=== PATIENT | female | born 1970 | race Two or more races ===

== ENCOUNTER → 2020-07-24 14:38 | Outpatient (BNVA) | payer BC, SELFPAY | PROVIDERS: Referring Provider Nurse Practitioner Primary Care; Visit Provider Internal Medicine Gastroenterology | DX: Z76.89 Persons encountering health services in other specified circumstances (principal) ==

== ENCOUNTER 2020-10-05 07:04 | Day surgery (SDC) | payer BC, SELFPAY ==
--- NOTE | 2020-10-04 09:03 | P.CONAN_ITS ---
HPI - Anesthesia Eval Consult details Narrative: 49yo F for Upper Endoscopy and Colonoscopy h/o polysub - ? last used [facility] Past Medical History Medical History (Updated 10/05/20 @ 08:29 by Suyapa Cheng) Anxiety Depression HTN (hypertension) Substance abuse Family History Family History (Updated 07/24/20 @ 14:48 by Paulina Sanchez CMA) Father History of cancer Mother History of cancer Surgical History Surgical History (Updated 07/24/20 @ 14:47 by Paulina Sanchez CMA) History of appendectomy Hx of endoscopy Social History Social History (Updated 07/24/20 @ 14:50 by Paulina Sanchez CMA) Alcohol intake: current Alcohol intake frequency: a few times a month Alcohol type: beer Smoking Status: Current every day smoker Tobacco Type: Cigarette Cigarettes Per Day: 10 Use of substances other than those prescribed or required for medical reasons: Yes Substance Use Type: Crack/Cocaine and Marijuana Advance Directives: No Advance Directives Information Provided: Yes Meds Allergies Allergy/AdvReac Type Severity Reaction Status Date / Time Penicillins Allergy Intermediate Difficulty Verified 10/05/20 08:00 Swallowing, hives MORPHINE Allergy Intermediate Facial Uncoded 09/29/20 14:22 Swelling Home Medications Medication Instructions Recorded Confirmed Type metoprolol succinate 100 mg PO DAILY 09/29/20 09/29/20 History hydrochlorothiazide 10/05/20 10/05/20 History losartan 50 mg PO DAILY 10/05/20 10/05/20 History Exam Exam Date and Time: October 04, 2020 09 Assessment and Plan Assessment Anesthesia Assessment: Chart Reviewed
[2020-10-05 07:49] LABS: UPreg QC Valid YES; Urine Pregnancy NEGATIVE (NEGATIVE)
--- NOTE | 2020-10-05 07:49 | P.HPSUR_ITS ---
Pre-Procedural Eval Section B Chief Complaint: left upper quadrant pain,screening Relevant Social History: Tobacco Use Present Medications: see Short Stay Collaborative assessment Medical History: Significant History (Anxiety Depression HTN (hypertension) Substance abuse) History of Previous Operations: Relevant previous surgery/procedure and date(s) (appendectomy) Allergies: Allergies Allergy/AdvReac Type Severity Reaction Status Date / Time Penicillins Allergy Intermediate Difficulty Verified 09/29/20 14:22 Swallowing, hives MORPHINE Allergy Intermediate Facial Uncoded 09/29/20 14:22 Swelling Review of Systems Sugical H&P ROS: Negative: Constitution, Cardiovascular, Respiratory, N eurological, Psychiatric, Hem-Onc, Allergic/Immunologic, Gastrointestinal, Genitourinary, Musculoskeletal, Integumentary, Endocrine and Eyes/Ears/Nose/Throat Exam Surgical H&P Exam: Normal: HEENT, Normal: Heart, Normal: Lungs, Normal: Extremities, Normal: Abdomen, Normal: Skin and Normal: Neurological Plan Diagnosis/Plan: Unchanged I have reviewed the history and physical and performed a pertinent physical examination on my patient. No changes have occurred unless specified.
[2020-10-05 08:09] VITALS: BP 147/91; PULSE 77; RESP 18; TEMP 36.3; O2SAT 99; BMI 30.4
[2020-10-05] MEDS: Lactated Ringers 1,000 ML 100 ML IVCONT (08:27)
--- NOTE | 2020-10-05 08:42 | PM.OP ---
Brief Operative Note Date of Service: 10/05/20 Pre-op diagnosis: luq pain and colon screen Post-op diagnosis: same Procedure: see op note Surgeon: Dorinda Fernandez MD Anesthesia: MAC Estimated blood loss (mL): 0 Condition: stable Disposition: PACU
--- NOTE | 2020-10-05 08:43 | W.PM.OPN ---
Operative Note Operative Note Date of Service: 10/05/20 Narrative: Operative Information Procedure Description: EGD, Colonoscopy FLEXIBLE TRANSORAL UPPER GASTROINTESTINAL ENDOSCOPY AND COLONOSCOPY PROCEDURE NOTE UPPER ENDOSCOPY Consent: Indications for the procedure and potential complications of bleeding, perforation, reaction to medications and missed diagnosis were discussed with the patient and informed consent was obtained. Instrument: Olympus GIF H 190 J mid size upper endoscope Monitoring: Vital signs and clinical assessment, continuous EKG monitoring, Pulse oximetry, Carbon Dioxide monitoring and blood pressure monitoring were done throughout the procedure. Procedure: The patient was placed in the left lateral decubitis position and pre-procedure medications were administered and a bite block was placed. The endoscope was inserted into the mouth and advanced under direct vision to the third part of duodenum. A careful inspection was made as the upper endoscope was withdrawn including a retroflexed examination of the proximal stomach; Findings and interventions are described below. Findings: Larynx:normal Esophagus: GE junction at 40 cm, diaphragm hiatus at 40 cm, normal mucosa Stomach: Patchy erythema. Biopsies were obtained. Grade 2 flap valve on retroflexed examination of the cardia. Duodenum: moderate severe erythema extending to second part of duodenum, bx taken Intervention: Biopsies as noted above COLONOSCOPY Instrument: Olympus variable stiffness pediatric scope 190L Colonoscopy Monitoring: Vital signs and clinical assessment, continuous EKG monitoring, Pulse oximetry, Carbon Dioxide monitoring and blood pressure monitoring were done throughout the procedure. Colon withdrawal time was 13 minutes. Procedure: The patient was placed in the left lateral decubitis position and pre-procedure medications were administered. After a digital rectal examination of the ano-rectum, the video colonoscope was inserted into the rectum and advanced through the colon to the cecum/TI. The colonoscope was slowly withdrawn in a retrograde panoramic fashion and the colon mucosa was carefully examined including a retroflexed view of the rectum. Findings and interventions are described below. Procedure Difficulty:easy Findings: Terminal Ileum-normal, bx taken Cecum:normal Ascending Colon: normal Transverse Colon -normal Descending Colon:normal Sigmoid Colon: normal Rectum: Retroflexion with small internal hemorrhoids, grade I random colon bx taken to r/o microscopic colitis, or infiltrating disease due to findings in upper endoscopy Anorectum - normal Colon preparation: Constantia Bowel Preparation Scale Right colon; 3 Transverse colon: 2 Left colon; 2 (0 = Unprepared colon segment with mucosa not seen due to solid stool that cannot be cleared. 1 = Portion of mucosa of the colon segment seen, but other areas of the colon segment not well seen due to staining, residual stool and/or opaque liquid. 2 = Minor amount of residual staining, small fragments of stool and/or opaque liquid, but mucosa of colon segment seen well. 3 = Entire mucosa of colon segment seen well with no residual staining, small fragments of stool or opaque liquid) Impression and Post Procedure Diagnosis: Endoscopy Findings: gastritis duodenitis Colonoscopy Findings: internal hemorrhoids Plan: Await Pathology results Repeat Colonoscopy in 10 years or earlier if clinically indicated High fiber diet leaflet avoid straining at stool, epsom salts and sitz bath, anusol supps or cream prn trial of PPI see if helps sx, if h pylori pos then treat Above findings were reviewed with the patient and relevant handouts were provided if indicated.
[2020-10-05 09:20] VITALS: BP 107/61; PULSE 83; RESP 16; TEMP 36.7; O2SAT 97
--- NOTE | 2020-10-05 10:01 | HO.POSTANES ---
Post Anesthesia Evaluation Post Anesthesia Evaluation Vital Signs: Vital Signs Temp Pulse Resp BP Pulse Ox 10/05/20 09:20 98.0 F 83 16 107/61 97 10/05/20 08:09 97.3 F 77 18 147/91 H 99 Anesthesia: General (tiva) Mental Status: Awake Pain Control: Satisfactory Nausea/Vomiting: None Hydration: Adequate Anesthesia-Related Issues: No Anes. Related Issues
== END 2020-10-05 10:04 | disposition home or self-care (01) ==
PROVIDERS: Nurse Practitioner; PCP Nurse Practitioner Primary Care; Visit Provider Internal Medicine Gastroenterology
PROC: (CPT 45380; principal; 2020-10-05 08:30)
DX: Z12.11 Encounter for screening for malignant neoplasm of colon (principal); K64.0 First degree hemorrhoids; K29.50 Unspecified chronic gastritis without bleeding; K44.9 Diaphragmatic hernia without obstruction or gangrene; K29.80 Duodenitis without bleeding; I10 Essential (primary) hypertension; F32.9 Major depressive disorder, single episode, unspecified; F14.10 Cocaine abuse, uncomplicated; F12.10 Cannabis abuse, uncomplicated; F17.210 Nicotine dependence, cigarettes, uncomplicated; Z79.899 Other long term (current) drug therapy; Z88.0 Allergy status to penicillin; Z88.8 Allergy status to other drugs, medicaments and biological substances
CPT/HCPCS: 45380; 43239; 81025; 88305; 88342; J3010

== ENCOUNTER → 2020-10-16 14:22 | Outpatient (BNVA) | payer BC, SELFPAY | PROVIDERS: PCP Internal Medicine Geriatric Medicine; Visit Provider Internal Medicine Gastroenterology ==

== ENCOUNTER → 2021-03-20 12:16 | Outpatient (BNVA) | payer BC, SELFPAY | PROVIDERS: PCP Internal Medicine Geriatric Medicine; Visit Provider Internal Medicine Gastroenterology | DX: R10.12 Left upper quadrant pain (principal) ==

== ENCOUNTER 2021-08-07 11:33 | Outpatient (REF) | payer BC, SELFPAY ==
--- NOTE | ~2021-08-07 | US_ITS ---
EXAMINATION: US ABDOMEN COMPLETE CLINICAL INFORMATION: Left upper quadrant pain. COMPARISON: X-ray abdomen 06/29/2018. Ultrasound abdomen complete 06/05/2018. TECHNIQUE: Real-time imaging of the abdominal viscera. FINDINGS: PANCREAS: Normal. ABDOMINAL AORTA: The proximal, mid, and distal segments are normal in caliber. INFERIOR VENA CAVA: Visualized portions are normal. LIVER: The liver is normal in size. The liver contour is normal. Liver echotexture is normal. No focal hepatic lesion. There is no intrahepatic biliary duct dilatation seen. GALLBLADDER: Normal. The gallbladder is physiologically distended without evidence of stones, sludge, polyps, wall thickening or pericholecystic fluid. COMMON BILE DUCT: Normal in caliber measuring 0.5 cm in diameter. RIGHT KIDNEY: Normal. No hydronephrosis. No renal calculi or focal parenchymal lesions. The kidney measures 10.6 cm in maximum dimension. LEFT KIDNEY: Normal. No hydronephrosis. No renal calculi or focal parenchymal lesions. The kidney measures 11.5 cm in maximum dimension. SPLEEN: Normal. The spleen measures 8.1 cm in maximum dimension. FREE FLUID: None. US/US abdomen complete IMPRESSION: Normal abdominal ultrasound.
== END 2021-08-07 11:34 | disposition home or self-care (01) ==
LOC: HO.US 11:33
PROVIDERS: Visit Provider Internal Medicine Gastroenterology
DX: R10.12 Left upper quadrant pain (principal)
CPT/HCPCS: 76700

== ENCOUNTER 2023-05-06 14:56 | Outpatient (REF) | payer BC, SELFPAY ==
--- NOTE | ~2023-05-06 | XR_ITS ---
EXAMINATION: XR CHEST CLINICAL INFORMATION: Hemoptysis. COMPARISON: None available. TECHNIQUE: 2 views of the chest were obtained. FINDINGS: The cardiomediastinal silhouette is normal. There is no focal lung consolidation or pleural effusion. The bony structures and soft tissues are unremarkable. XR/XR chest 2V IMPRESSION: No active cardiopulmonary disease.
== END 2023-05-06 14:57 | disposition home or self-care (01) ==
LOC: HO.HHCX 14:56
PROVIDERS: Visit Provider Internal Medicine
DX: R04.2 Hemoptysis (principal)
CPT/HCPCS: 71046

== ENCOUNTER 2023-05-06 18:43 | Outpatient (REF) | payer BC, SELFPAY | END 2023-05-06 18:44 | disposition home or self-care (01) | LOC: HO.HHCLNP 18:43 | PROVIDERS: Visit Provider Internal Medicine | DX: J02.9 Acute pharyngitis, unspecified (principal) | CPT/HCPCS: 87070 ==

== ENCOUNTER 2023-07-09 | Outpatient (REF) | payer BC, SELFPAY | END 2023-07-09 00:01 | disposition home or self-care (01) | LOC: HO.HHCLNP | PROVIDERS: Visit Provider Emergency Medicine | DX: J02.9 Acute pharyngitis, unspecified (principal) | CPT/HCPCS: 87070 ==

== ENCOUNTER 2023-07-10 12:19 | Outpatient (REF) | payer BC, SELFPAY ==
[2023-07-10 12:34] LABS: MANUAL DIFF FLAG NO
[2023-07-10 12:37] LABS: Basophils Absolute Auto 0.1 X10*3/uL (0.0-0.2); Basophils Percent Auto 0.9 % (0-2); Eosinophils Absolute Auto 0.2 X10*3/uL (0.0-0.4); Hematocrit 37.9 % (37.0-47.0); Hemoglobin 12.4 g/dl (12.0-16.0); Imm Gran Abs Auto 0.03 X10*3/uL (0.00-0.03); Imm Gran Pct Auto 0.5 % (0.0-0.4); Lymphocytes Absolute Auto 2.2 X10*3/uL (1.2-4.9); Lymphocytes Percent Auto 33.1 % (20-40); Mean Corpuscular HGB Conc 32.7 g/dl (31.0-35.0); Mean Corpuscular Hemoglobin 27.7 pg (27.0-33.0); Mean Corpuscular Volume 84.6 fL (80.0-98.0); Mean Platelet Volume 9.2 fL (9.4-12.3); Monocytes Absolute Auto 0.8 X10*3/uL (0.1-1.2); Monocytes Percent Auto 12.1 % (2-11); Neutrophils Absolute Auto 3.3 x10*3/uL (2.0-8.3); Neutrophils Percent Auto 50.4 % (45-73); Platelet Count 286 X10*3/uL (160-400); Red Blood Count 4.48 X10*6/uL (4.20-5.50); Red Cell Distribution Width 14.4 % (11.0-16.0); White Blood Count 6.6 X10*3/uL (4.8-10.8)
[2023-07-10 12:50] LABS: INTERNATIONAL NORM RATIO 0.9 (0.9-1.1); Prothrombin Time 11.4 SEC (11.1-13.3)
[2023-07-12 22:34] LABS: TS Negative Control Passed; TS Panel A 0; TS Panel B 0; TS Positive Control Passed; TSpotTB Negative (Negative)
== END 2023-07-10 12:20 | disposition home or self-care (01) ==
LOC: HO.LAB 12:19
PROVIDERS: PCP Nurse Practitioner Primary Care; Visit Provider Internal Medicine
DX: Z11.1 Encounter for screening for respiratory tuberculosis (principal); R04.2 Hemoptysis
CPT/HCPCS: 36415; 85025; 85610; 85730; 86481

== ENCOUNTER 2023-09-25 08:55 | Outpatient (REF) | payer BC, SELFPAY ==
[2023-09-25 12:03] LABS: Estimated Average Glucose 128 mg/dL; Hemoglobin A1c % 6.1 % (<6.0)
[2023-09-25 12:07] LABS: Alanine Aminotransferase 21 U/L (0-31); Albumin Level 4.1 g/dL (3.5-5.0); Alkaline Phosphatase 87 U/L (39-117); Anion Gap 12 (12-20); Aspartate Amino Transferase 20 U/L (5-31); Bilirubin Total 0.2 mg/dL (0.0-1.0); Blood Urea Nitrogen 12 mg/dL (9-16); Calcium 9.7 mg/dL (8.4-10.2); Carbon Dioxide 30 mmol/L (22-29); Chloride 101 mmol/L (96-108); Cholesterol 163 mg/dL (<200); Estimated Glomerular Filt Rate > 60; Glucose Random 92 mg/dL (60-115); HDL Cholesterol 38 mg/dL (>40); LDL Cholesterol Calculated 103 mg/dL (<100); Sodium 139 mmol/L (135-145); Total Protein 7.6 g/dL (6.5-8.0); Triglycerides 111 mg/dL (<150)
[2023-09-25 12:22] LABS: TSH reflex Free T4 2.17 uIU/mL (0.32-4.0)
[2023-09-25 12:32] LABS: Reflex LDLD? No
== END 2023-09-25 08:56 | disposition home or self-care (01) ==
LOC: HO.HHCL 08:55
PROVIDERS: Visit Provider Family Medicine
DX: R04.2 Hemoptysis (principal); R51.9 Headache, unspecified; G89.29 Other chronic pain; R49.0 Dysphonia; R68.2 Dry mouth, unspecified; I10 Essential (primary) hypertension
CPT/HCPCS: 36415; 80053; 80061; 83036; 84443

== ENCOUNTER → 2023-11-05 13:45 | Outpatient (BNV) | payer BC, SELFPAY | PROVIDERS: PCP Nurse Practitioner Primary Care; Visit Provider Radiology Diagnostic Radiology | DX: Z12.31 Encounter for screening mammogram for malignant neoplasm of breast (principal) | CPT/HCPCS: 77063; 77067 ==

== ENCOUNTER 2023-11-05 13:59 | Outpatient (REF) | payer BC, SELFPAY | END 2023-11-05 14:00 | disposition home or self-care (01) | LOC: HO.MAMMO 13:59 | PROVIDERS: PCP Nurse Practitioner Primary Care; Visit Provider Family Medicine | DX: Z12.31 Encounter for screening mammogram for malignant neoplasm of breast (principal) | CPT/HCPCS: 77063; 77067 ==

== ENCOUNTER 2023-12-19 10:57 | Outpatient (AMB) | payer BC, SELFPAY ==
--- NOTE | 2023-12-19 08:26 | A.OFFVIS_ITS ---
Intake Intake Visit Reasons: Current Smoker Allergies Penicillins Allergy (Intermediate, Verified 09/24/23 14:53) Difficulty Swallowing, hives MORPHINE Allergy (Intermediate, Uncoded 09/24/23 14:53) Facial Swelling HPI Current Smoker HPI Details Initial visit for this 53yo smoker with a 30PYH. Patient has been smoking since age 18 for 35 years at 1ppd. . Reports marijuana use. Denies second hand smoke exposure. Denies exposure to chemicals or substances like asbestos. . Denies known family history of lung cancer. Father had throat cancer. Denies personal history of cancers. Denies chest CT in last year. . Denies recent travel outside the [place]. Denies recent respiratory illness or recent hospitalization for respiratory issues. Admits testing positive for COVID x 4. Admits receiving COVID Vaccine. x 2. . Denies fever, chills, new/worsening cough, hemoptysis, hoarseness or dysphagia. Denies significant chest pain, significant dyspnea or unintentional weight loss. Patient Lung Cancer Screening Questionnaire reviewed with patient by provider. . Shared Decision Making Completed. Patient meets criteria. Discussed in detail with patient, the risk vs benefit of LDCT screening. Patient consents to proceed with scan. Discussed smoking cessation. [facility] Medical History (Updated 12/19/23 @ 11:31 by Eli Arana PA-C) Nicotine dependence, cigarettes, uncomplicated Substance abuse Anxiety Depression HTN (hypertension) Surgical History (Updated 12/18/23 @ 13:55 by Eli Arana PA-C) History of colonoscopy History of endoscopy History of appendectomy Family History Father History of cancer Mother History of cancer Social History (Updated 12/19/23 @ 11:31 by Eli Arana PA-C) Household Members: Children Alcohol intake: current Alcohol intake frequency: holidays/special occasions only Alcohol type: beer Patient Tobacco Use Status: Current everyday Tobacco user Cigarettes Per Day: 10 Years Smoked: onset 18yo, 1ppd x 35yrs, 30pyh Substance Use Type: Marijuana Assessment & Plan Assessment & Plan (1) Nicotine dependence, cigarettes, uncomplicated: Comment: (current smoker, onset 18yo, 1ppd x 35yrs, 30pyh) Code(s): F17.210 - Nicotine dependence, cigarettes, uncomplicated Plan: - SDM visit completed today in office. - Patient meets criteria for LDCT for lung cancer screening purposes and is asymptomatic. - Smoking cessation counseling offered. Patients can always call [phone]. - Will arrange for a LDCT scan of the chest for screening purposes at [facility]. - Risks, benefits, and alternatives were discussed in detail and the patient agrees to proceed. - Risks discussed include but are not limited to: radiation exposure, anxiety during testing and while awaiting results, false negatives, false positives and possibility of additional intervention such as further imaging or surgical procedures for benign disease. - Benefits are obviously detection of lung cancer at an early stage which can lead to improved outcomes. - Discussed the importance of screening program compliance with adherence to yearly LDCT scan as scheduled - or sooner interval scans for personalized screening regimen. - Discussed follow up plan. Our office will send a letter discussing results and if needed set up phone call and office visit based on CT findings. - Patient educated on results categorization and the management decisions for suspicious findings potentially found on the screening LDCT scan. Any patient with a Lung RADS score of 3 or 4 will be reviewed by a multidisciplinary team at [facility] to form a plan of action in regards to scan findings. - If further work up is warranted for a suspicious lung finding this will be followed by the Lung Cancer Screening program in conjunction with the Thoracic Surgery Department at [facility]. - A copy of the office note and LDCT will be sent to the patient's PCP - as well as documentation on any associated further plans of care. - Incidental findings on LDCT are the PCP's responsibility. These findings are indicated with an S finding on the LDCT Assessment. A note discussing the findings will be sent to the PCP who is then responsible for further management. - All questions answered.? Coding Level of Care Code Lung Cancer Screening [id number] Diagnoses Nicotine dependence, cigarettes, uncomplicated F17.210
== END 2023-12-19 11:36 | disposition home or self-care (01) ==
PROVIDERS: PCP Nurse Practitioner Primary Care; Referring Provider Nurse Practitioner Primary Care; Visit Provider Physician Assistant Medical
DX: F17.210 Nicotine dependence, cigarettes, uncomplicated (principal)
CPT/HCPCS: G0296

== ENCOUNTER 2023-12-19 11:37 | Outpatient (REF) | payer BC, SELFPAY ==
--- NOTE | ~2023-12-19 | CT_ITS ---
EXAMINATION: CT CHEST SCREENING CLINICAL INFORMATION: Nicotine dependence, current smoker, one pack per day with 30 pack-year history. COMPARISON: None available. TECHNIQUE: Multidetector volumetric CT imaging of the chest is performed without contrast using low dose technique. Additional 2D coronal and sagittal reformatted images and axial 3D maximum intensity projection (MIP) images are generated on the CT workstation. This CT examination was performed using dose optimization techniques as appropriate, variously including the following: *Automated exposure control *Adjustment of mA and/or kV according to patient size (this includes techniques or standardized protocols for targeted exams where dose is matched to indication/reason for exam; i.e. extremities or head) *Use of iterative reconstruction technique DLP: 45 mGy-cm FINDINGS: LUNGS: Emphysematous changes are present along with peribronchial thickening. Some tree-in-bud ground-glass and solid nodular densities are seen in the right lower lobe (5:247-290 and bacon images). There are a few areas of inspissated mucus within bronchi in this region. No suspicious lung masses seen concerning for malignancy. MEDIASTINUM: The mediastinum is normal. CORONARY ARTERY CALCIFICATION: None visualized on this study. PLEURA: There is no pleural effusion. No pleural mass or thickening. AXILLA: No lymphadenopathy. UPPER ABDOMEN: Unremarkable. OSSEOUS STRUCTURES: Unremarkable. CT/CT lung screening IMPRESSION: Emphysema and bronchial thickening are present. Right lower lobe tree-in-bud formation with predominantly ground-glass changes consistent with inflammatory/infectious etiologies. No evidence to suggest malignancy. ASSESSMENT: Lung-RADS category 1: Negative RECOMMENDATION: Routine annual low-dose CT screening in 12 months.
== END 2023-12-19 11:38 | disposition home or self-care (01) ==
LOC: HO.CT 11:37
PROVIDERS: PCP Nurse Practitioner Primary Care; Visit Provider Nurse Practitioner Family
DX: Z12.2 Encounter for screening for malignant neoplasm of respiratory organs (principal); F17.210 Nicotine dependence, cigarettes, uncomplicated
CPT/HCPCS: 71271; G0296

== ENCOUNTER 2024-03-08 09:52 | Outpatient (AMB) | payer BC, SELFPAY ==
--- NOTE | 2024-03-08 10:09 | A.OFFVIS_ITS ---
Vital Signs 03/08/24 10:11 Height 5 ft 9 in Weight 189 lb BMI 27.9 BP 122/84 Blood Pressure Location Rt brachial Position Sitting Pulse 75 Pulse Source Pulse Oximeter Pulse Oximetry (%) 98 Oxygen Delivery Method Room Air Intake Visit Reasons: ENP-Loud Snoring/Chronic dunn -Conf Intake Note: patient presents for loud snoring. patient presents for snoring and waking up tired Retail Pharmacy Merchandiser Required: Yes Retail Pharmacy Merchandiser Name: mariela dennis Allergies Penicillins Allergy (Intermediate, Verified 03/08/24 10:12) Difficulty Swallowing, hives MORPHINE Allergy (Intermediate, Uncoded 03/08/24 10:12) Facial Swelling Medication List - Last Reconciled 03/08/24 by EDIS Foster clonazepam 0.5 mg PO BID PRN dicyclomine 20 mg PO TID doxycycline hyclate 100 mg PO BID [hydrochlorothiazide ] hydrochlorothiazide 12.5 mg PO DAILY losartan 50 mg PO DAILY metoprolol succinate ER 100 mg PO DAILY pantoprazole 40 mg PO BID peg-electrolyte soln 420 gram (TriLyte With Flavor Packets) 240 mL PO Q10M HPI Comments Details: Right-handed 53-yr-old female presents for new pt evaluation of sleep and headache disorder. Pt is accompanied by her friend. Pt reports she started having sinus congestion and headaches last April after she had a URI/sinusitis. During this time, she has had 3 courses of antibiotics. She was never given prednisone. She has been noticing hemoptosis, dry mouth in am, as well as snoring. She notes she has had Covid-9 4 times, the 1st time was 3 yrs ago, and the last was in Jul-Aug 2023- and this was the worst- more URI, SOB, fatigue, weakness s/s. She states she did not have frequent or bothersome headaches beofre last Apr, She has not had sinus imaging yet. She has an initial ENT consult scheduled for December 2023, CT/CT lung screening IMPRESSION: Emphysema and bronchial thickening are present. Right lower lobe tree-in-bud formation with predominantly ground-glass changes consistent with inflammatory/infectious etiologies. No evidence to suggest malignancy. 02/17/24, Complete PFT INTERPRETATION: Vital capacity near lower limit of normal, without obstruction. No significant response to bronchodilator. The MVV is consistent with the level of FEV1. TLC is normal. The carbon monoxide diffusing capacity is above 100% predicted. PMH and ROS are notable for:? Musculoskeletal disorders or injury: Remote h/o right rotator cuff tear Mood d/o: Anxiety, h/o depression. Respiratory d/o: Asthma- states this started this past yr. Emphysema as above CV disease: HTN, tachycardia- tx's w/ metoprolol/losartan and water, HLD- now better with diet changes. Endocrine or metabolic d/o: borderline Diabetes GI d/o: Constipation: at times, H/o H. Pylori. Has GERD- omeprazolel helps- but needs a refill. 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 History of concussion/head injury, Sleep d/o, Clotting or hematology d/o, Thyroid d/o History of seizure, syncope, or drop attacks, Leg Cramps, Family history of migraine or other headache disorder Lifestyle considerations: Sleep routine: Usual bedtime: 6:30-7:30am and wake-up time: 11:30-12pm. Sometimes sleeps again before work. Sleep difficulties: Endorses: Snoring, Fatigue, Gasping, rare gasping arousals, Restless sleep, am dry mouth. Denies bruxism. 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 Family planning: none Headache questionnaire:? Typical headache characteristics: Prodrome symptoms: unsure Aura: none Pain intensity: 7-8/10 Location, quality, characteristics: Just a pain in frontal region and top of head Associated symptoms: phonophobia, some fatigue, bilateral nasal and maxilary sinus congestion and watery eyes. Triggers: working more days in a row Time of day: maybe when working- maybe due to the dust Duration and Frequency: whenever working, starts 3 hours after stating work, and then can last the rest of the shift. Can occur up to 6 days a week. How does headache impact your life? works through the headache Current acute medication use/interventions: Tylenol- some effect Current preventative medication use: None Non-pharmacological interventions: none [facility] Medical History (Updated 03/08/24 @ 11:41 by EDIS Foster) Food allergy Nicotine dependence, cigarettes, uncomplicated Substance abuse Anxiety Depression HTN (hypertension) Surgical History History of colonoscopy History of endoscopy History of appendectomy Family History Father History of cancer Mother History of cancer Social History Household Members: Children Alcohol intake: current Alcohol intake frequency: holidays/special occasions only Alcohol type: beer Patient Tobacco Use Status: Current everyday Tobacco user Cigarettes Per Day: 10 Years Smoked: onset 18yo, 1ppd x 35yrs, 30pyh Substance Use Type: Marijuana Physical Exam Vital Signs: Last Vital Signs Pulse 75 03/08/24 10:11 BP 122/84 03/08/24 10:11 Pulse Ox 98 03/08/24 10:11 Oxygen Delivery Method Room Air 03/08/24 10:11 BMI result Body Mass Index 27.9 Const Orientation/consciousness: patient oriented x3 HEENT Other: Mallampati stage IV Head: Yes normocephalic Resp Effort & Inspection: normal respiratory effort and able to speak in complete sentences Neuro General: patient oriented x3 Cranial nerves: Yes CN's II-XII intact bilaterally Cognition (Neuro): normal cognition Gait exam (Neuro): Normal gait present Motor exam (neuro): 5/5 motor strength present throughout Deep tendon reflexes (DTR's): Right triceps reflex intensity grade: 2+, Left triceps reflex intensity grade: 2+, Rt Biceps (C5, C6): 2+, Left biceps reflex intensity grade: 2+, Right brachioradialis reflex intensity grade: 2+, Left brachioradialis reflex intensity grade: 2+, Right patellar reflex intensity grade: 2+ and Left patellar reflex intensity grade: 2+ Coordination: [id number] test normal Pupils: Normal pupillary reactivity/response: bilateral Psych Appearance: grossly normal Mental Status: mental status grossly normal Speech and movement: Normal speech and movement present Affect: normal affect Attitude: cooperative Thought process: Normal thought process present Assessment & Plan Assessment & Plan (1) Chronic congestion of paranasal sinus: Code(s): J32.9 - Chronic sinusitis, unspecified Category: Medical (2) Headache: Code(s): R51.9 - Headache, unspecified Category: Medical (3) Migraine without aura: Code(s): G43.009 - Migraine without aura, not intractable, without status migrainosus Category: Medical (4) Snoring: Code(s): R06.83 - Snoring Category: Medical (5) Sleep difficulties: Code(s): G47.9 - Sleep disorder, unspecified Category: Medical (6) Fatigue: Code(s): R53.83 - Other fatigue Category: Medical Plan Pt advised to undergo: CT sinuses to assess for secondary etiologies of headcahe and chronic sinus congestion. HST to assess for sleep apnea Future considerations- Brain MRI w/wo. For overall headache/sleep management: * Optimize good self-care, including but not limited to maintaining a healthy diet, adequate fluid intake, adequate sleep, and engaging in regular physical activity. * Track headaches, especially after any treatment regimen changes. * Advised to reduce smoking For acute headache treatment: Discussed importance of taking acute medications at the first sign of headache. Trial Nurtec ODT 75mg qd prn. May take w/ Tylenol. Potential adverse effects of gepants, including but not limited to fatigue, nausea, dry mouth, constipation. Previous acute migraine medication trials: None Acute migraine medication contraindications: All triptans d/t HTN, HLD, tachycardia. For headache prevention medication: Preventative medications should be taken routinely as prescribed for best effect, it may take several weeks for full effect to take effect. Start Riboflavin 400mg qam Start Magnesium 400mg qhs Start Loratadine 10mg qd. Continue Metoprolol and Losartan - ordered for HTN and tachycardia. Previous migraine prevention medication trials: None other Migraine prevention medication contraindications: None at this time Follow-up upon review of above and in clinic in 3-4 months or sooner prn. Orders: Orders CT sinus wo/w IV con Today J32.9 - Chronic sinusitis, unspecified, R51.9 - Headache, unspecified RT home sleep study Today G47.9 - Sleep disorder, unspecified, R06.83 - Snoring, R53.83 - Other fatigue Medications: New rimegepant (Nurtec ODT) 75 mg PO ONCE 30 days PRN 16 tabs 6RF migraine headache MDD 1 tab G43.009 - Migraine without aura, not intractable, without status migrainosus loratadine 10 mg PO DAILY 30 days 30 tabs 6RF omeprazole 20 mg PO DAILY 30 days 30 caps 3RF Discontinued pantoprazole Discontinued Reason: Doctor's Order 40 mg PO BID 60 tabs 1RF Coding Level of Care Code New Pt Level 4 (77948) Diagnoses Chronic congestion of paranasal sinus J32.9 Headache R51.9 Migraine without aura G43.009 Snoring R06.83 Sleep difficulties G47.9 Fatigue R53.83
[2024-03-08 10:11] VITALS: BP 122/84; PULSE 75; O2SAT 98; BMI 27.9
== END 2024-03-08 11:52 | disposition home or self-care (01) ==
PROVIDERS: PCP Nurse Practitioner Primary Care; Visit Provider Nurse Practitioner Family
DX: J32.9 Chronic sinusitis, unspecified (principal); R51.9 Headache, unspecified; G43.009 Migraine without aura, not intractable, without status migrainosus; R06.83 Snoring; G47.9 Sleep disorder, unspecified; R53.83 Other fatigue
CPT/HCPCS: 99204

== ENCOUNTER → 2024-03-08 09:52 | Outpatient (BNVA) | payer BC, SELFPAY | PROVIDERS: PCP Nurse Practitioner Primary Care; Visit Provider Nurse Practitioner Family ==

== ENCOUNTER 2024-03-23 11:37 | Outpatient (REF) | payer BC, SELFPAY ==
[2024-03-23 13:13] LABS: Estimated Average Glucose 131 mg/dL; Hemoglobin A1c % 6.2 % (<6.0)
== END 2024-03-23 11:38 | disposition home or self-care (01) ==
LOC: HO.HHCL 11:37
PROVIDERS: Visit Provider Internal Medicine Geriatric Medicine
DX: R73.9 Hyperglycemia, unspecified (principal); R73.03 Prediabetes
CPT/HCPCS: 36415; 83036

== ENCOUNTER 2024-04-23 14:30 | Outpatient (REF) | payer BC, SELFPAY ==
--- NOTE | ~2024-04-23 | CT_ITS ---
EXAMINATION: CT SINUS WITHOUT CONTRAST CLINICAL INFORMATION: Chronic sinusitis, unspecified. COMPARISON: None available. TECHNIQUE: Spiral CT of the paranasal sinuses and maxillofacial region was performed without contrast. Sagittal, coronal, and thin section axial reformatted images were constructed from the axial data set. This CT examination was performed using dose optimization techniques as appropriate, variously including the following: *Automated exposure control *Adjustment of mA and/or kV according to patient size (this includes techniques or standardized protocols for targeted exams where dose is matched to indication/reason for exam; i.e. extremities or head) *Use of iterative reconstruction technique DLP: 112 mGy-cm FINDINGS: POSTOPERATIVE FINDINGS: -None apparent. MAXILLARY DENTAL FINDINGS: -None apparent. NASAL CAVITY: -Normally pneumatized without masses. -Nasal septum is minimally left deviated anteriorly. No spur. TURBINATES: -Middle and inferior turbinates have normal morphology and appearance. Superior turbinates are also normal. MAXILLARY SINUSES: -Right maxillary antrum demonstrates to posteroinferior abutting mucous retention cysts, occupying approximately one third of the sinus. There is a presumably old orbital floor fracture on the right. Remainder of the sinus is pneumatized without air-fluid levels. -Right maxillary ostia is minimally narrowed by a partial Michelle cell but otherwise the infundibulum is patent. -Left maxillary sinus demonstrates moderate polypoid mucosal thickening throughout the anterior one half, without air-fluid level. -Right maxillary ostia is narrowed by Claudy Michelle cell and low lying ethmoid air cell, however a thin air channel remains patent. FRONTAL SINUSES: -Normally pneumatized bilaterally. Small osteoma present within the septum. -Frontal recesses are minimally narrowed by mucosal thickening but otherwise patent. ETHMOID SINUSES: -Anterior ethmoid sinuses are pneumatized normally. -Posterior mid sinuses demonstrate mild mucosal thickening left greater than right, possibly related to mucous retention cyst on the left. SPHENOID SINUSES: -Normally pneumatized bilaterally with the left being dominant. -Sphenoethmoidal recesses are minimally narrowed by mucosal thickening but air channels remain patent. PREOPERATIVE ANATOMY: -There are type III cribriform plates. They are symmetric. -The left fovea ethmoidalis and lateral lamellae are slightly lower. -The anterior ethmoid canals are both surrounded by air. -There are petra isaak is pneumatized. ADDITIONAL FINDINGS: -Globes and orbital contents appear normal. -Imaged intracranial contents demonstrate no mass effect, edema, or ventriculomegaly. -There are bilateral torus mandibularis, which are incompletely imaged. -Facial soft tissues appear normal. Fat planes are preserved in the retromaxillary regions. -Minimal prominence of the adenoidal soft tissues. -Partially imaged mastoids and tympanic cavities are normally pneumatized. The petrous apices are pneumatized bilaterally. -Mild degenerative changes in the TM joints. CT/CT sinus wo IV con IMPRESSION: 1. Asyb-ks-dmfpjkhs sinus disease within the left greater than right maxillary antra. 2. Minimal posterior ethmoid sinus disease. 3. All major drainage pathways are patent as detailed. 4. Presumably old right orbital floor fracture. 5. Additional ancillary findings as well as anatomical variation as detailed in the body of the report. Electronically signed by: Hai Valiente MD 05/24/2024 01:03 PM EDT
== END 2024-04-23 14:31 | disposition home or self-care (01) ==
LOC: HO.CT 14:30
PROVIDERS: PCP Nurse Practitioner Primary Care; Visit Provider Psychiatry & Neurology Neurology
DX: J32.9 Chronic sinusitis, unspecified (principal)
CPT/HCPCS: 70486

== ENCOUNTER → 2024-04-23 14:32 | Outpatient (BNV) | payer BC, SELFPAY | PROVIDERS: PCP Nurse Practitioner Primary Care; Visit Provider Radiology Diagnostic Radiology | DX: J32.9 Chronic sinusitis, unspecified (principal) | CPT/HCPCS: 70486 ==

== ENCOUNTER 2024-12-22 12:09 | Outpatient (REF) | payer BC, SELFPAY ==
--- OUTSIDE RECORDS SUMMARY | 2024-12-22 14:11 | XMS_ITS | Encounter Summary ---
Author Organization [facility] [facility] Address [address] [place] [address] [address] [place] [address] Care Team Providers Care File Drawer Finisher Name Role Phone Dianne Smith Primary Care Provider [phone] Reason for Visit * Reason Comments Med Refill Encounter Details Date Type Department Care Team ([facility] Contact Info) Description 12/25/2023 Refill [facility] [address] [place], [place] [phone] Dianne Smith ANP [address] [place] [address] Anxiety Social History Tobacco Use Types Packs/Day Years Used Date Smoking Tobacco: Every Day Cigarettes Passive Smoke Exposure: Current Smokeless Tobacco: Never Comments Unknown Sex and Gender Information Value Date Recorded Sex Assigned at Female 07/15/2022 10:32 AM EDT Legal Sex Female 10:32 AM EDT Gender Identity Female 07/15/2022 10:32 AM EDT Sexual Orientation Lesbian or [place] 07/15/2022 10 :32 AM EDT documented as of this encounter Plan of Treatment Upcoming Encounters Date Type Department Care Team ([facility] Contact Info) Description 01/18/2025 11:00 AM EDT Office Visit [facility] [address] [place] [address] Dianne Smith ANP [address] [place] [address] documented as of this encounter Visit Diagnoses Diagnosis Anxiety Anxiety state, unspecified documented in this encounter Care Teams File Drawer Finisher Relationship Specialty Start Date End Date Dianne Smith ANP [address] [place] [address] PCP - General Family Medicine 02/01/20 documented as of this encounter
--- OUTSIDE RECORDS SUMMARY | 2024-12-22 14:11 | XMS_ITS | Encounter Summary ---
Author Organization [employer] Address [address] [place] [address] [address] [place] [address] Care Team Providers Care Brick Chimney Builder Name Role Phone Dianne Smith Primary Care Provider [phone] Reason for Visit * Reason Comments Med Refill Encounter Details Date Type Department Care Team (Late st Contact Info) Description 03/31/2024 Refill [facility] [address] [place], [place] [phone] Dianne Smith ANP [address] [place] [address] Anxiety Social History Tobacco Use Types Packs/Day Years Used Date Smoking Tobacco: Every Day Cigarettes Passive Smoke Exposure: Current Smokeless Tobacco: Never Depression Answer Date Recorded Patient Health Questionnaire-9 Score 6 01/19/2024 Patient Health Questionnaire-9 Score 6 01/19/2024 Last PHQ-9: Questionnaire Data Not on file 0 01/19/2024 Housing Stability Answer Date Recorded What is your housing situation today? I have estiven rascon 01/12/[address] you li ve. Do you have problems with any of the following? None of the above 01/12/2024 Food Insecurity Answer Date Recorded Within the past 12 months, y ou worried that your food would run out before you got money to buy more: Often true 01/12/2024 Within the past 12 months,th e food you bought just didn't last and you didn't have enough money to get more: Often true Transportation Answer Date Recorded In the past 12 months, has l ack of transportation kept you from medical appts, meetings, work or from getting things needed for daily living? No 01/12/2024 Utilities Answer Date Recorded In the past 12 months, has t he electric, gas, oil or water company threatened to shut off services in your home? No 01/12/2024 Depression Answer Date Recorded Patient Health Questionnaire-2 Score 0 01/19/2024 Comments Unknown Sex and Gender Information Value Date Recorded Sex Assigned at Female 07/15/2022 10:32 AM EDT Legal Sex Female 10:32 AM EDT Gender Identity Female 07/15/2022 10:32 AM EDT Sexual Orientation Lesbian or [place] 07/15/2022 10 :32 AM EDT documented as of this encounter Plan of Treatment Upcoming Encounters Date Type Department Care Team (Late st Contact Info) Description 01/18/2025 11:00 AM EDT Office Visit [facility] [address] [place] [address] Dianne Smith ANP [address] [place] [phone] documented as of this encounter Visit Diagnoses Diagnosis Anxiety Anxiety state, unspecified documented in this encounter Additional Health Concerns Assessment Noted Time PHQ-9 Depression Total Score: 6 01/19/20 24 1:17 PM EDT documented as of this encounter Care Teams Brick Chimney Builder Relationship Specialty Start Date End Date Dianne Smith ANP [address] [place] [phone] PCP - General Family Medicine 02/01/20 documented as of this encounter
--- OUTSIDE RECORDS SUMMARY | 2024-12-22 14:11 | XMS_ITS | Encounter Summary ---
Author Organization [facility] Address [address] [place] [address] [address] [place] [address] Care Team Providers Care Wiring Inspector Name Role Phone Luis Francisco BELLAMY Primary Care Provider [phone] Reason for Referral * Imaging (Routine) - Closed Specialty Diagnoses / Procedures Referred By Steff chen Referred To Contact Radiology Diagnoses Hemoptysis Hoarseness of voice Sore throat Procedures CT Soft Tissue Neck w/ Contrast Lucila Barrientos MD [address] [place] [address] Phone: tel: fax: [facility] [address] [place] [address] Phone: tel: fax: Referral ID Status Reason Start Date Expiration Date Visits Re quested Visits Authorized [id number] Closed 10/08/2023 2024 1 1 Encounter Details Date Type Department Care Team (Late st Contact Info) Description 10/08/2023 Orders Only [facility] [address] [place], [place] [phone] Lucila Barrientos MD [address] [place], [place] [phone] Hemoptysis (Primary Dx); Hoarseness of voice; Sore throat Social History Tobacco Use Types Packs/Day Years [...] Description 01/18/2025 11:00 AM EDT Office Visit [facility] [address] [facility] [place] [address] Francisco Almeida ANP [address] [place] [address] Scheduled Orders Name Type Priority Associated Diagnoses Orde r Schedule CT Soft Tissue Neck w/ Contrast Imaging Routine Hemoptysis Hoarseness of voice Sore throat Expected: 10/08/2023, Expires: 10/08/2024 documented as of this encounter Procedures Procedure Name Priority Date/Time Associated Diagnosis Comments BI MAMMOGRAM SCREENING TOMOSYNTHESIS BILATERAL Routine 11/05/2023 2:18 PM EST documented in this encounter Results * BI Mammogram Screening Tomosynthesis Bilateral (11/05/2023 2:18 PM EST) Anatomical Region Laterality Modality Breast Bilateral Mammography 11/05/2023 2:18 PM EST Narrative 11/27/2023 5:42 AM EDT ? [facility] ? [address] ?[place] [id number] ? Mammography Report ? Signed ? Patient: Quinn Fernandez,Stacey ?MR# ?? : [id number] ? : 1970 ?Acct:[id number] ? Age/Sex: 53 / F ?ADM Date: 02/21/24 ? Loc: HO.MAMMO ? Attending Dr: Lucila Barrientos MD ? Ordering Physician: Lucila Barrientos MD ?Results: 1Negative ? Date of Service: 11/05/23 ?Follow Up: 1 Year From Orig ?? inal Mammogram ? Procedure(s): MM tomosynthesis screening BI ?? Accession Number(s): [id number] ? cc: FRANCISCO ALMEIDA NP; Lucila Barrientos MD ? EXAMINATION: ?? MM SCREENING DIGITAL BREAST TOMOSYNTHESIS, BILATERAL ? CLINICAL INFORMATION: ? Screening. Asymptomatic. ? COMPARISON: ?? Mammography: This study is compared with prior exams dating back to ?? 2018. ? TECHNIQUE: ?? Digital breast tomosynthesis is performed in both the craniocaudal and ?? mediolateral oblique views along with computer-aided detection (CAD). ?? Synthesized 2D images are generated from the tomosynthesis. ? FINDINGS: ?? There are scattered areas of fibroglandular density (ACR BI-RADS breast ?? composition Category b). ? There are no significant masses, abnormal calcifications, or other ?? abnormalities. ? MM/MM tomosynthesis screening BI ?? IMPRESSION: ?? No mammographic evidence of malignancy. ? ASSESSMENT: ? BI-RADS BI-RADS 1 - Negative ? RECOMMENDATION: ?? Routine annual mammography screening. ? 1 year F/U ? This examination should not preclude the clinical evaluation of a ?? suspicious palpable abnormality. ? This patient's information was entered into a reminder system with a ?? target due date for their next mammogram. ? Dictated By: ?Cecy Thakkar MD ? Signed By: ?<Electronically signed by Cecy Thakkar MD in OV> ? 14/24 0538 ? DD/DT: 11/05/ 1418 ? TD/TT: ? Pmp Project Manager: ? Procedure Note Donotuseinterpreter, Image - 11/27/2023 [facility] [address] [place] [address] Mammography Report Signed Patient: Stacey ShawMR# : [id number] : 1970Acct:[id number] Age/Sex: 53 / FADM Date: 11/05/23 Loc: HO.MAMMJeremi Attending Dr: Lucila Barrientos MD Ordering Physician: Lucila Barrientos MDResults: 1Negative Date of Service: 11/05/23Follow Up: 1 Year From Orig inal Mammogram Procedure(s): MM tomosynthesis screening BI Accession Number(s): [id number] cc: FRANCISCO ALMEIDA PRECISION GRINDER EXTERNAL; Lucila Barrientos MD EXAMINATION: MM SCREENING DIGITAL BREAST TOMOSYNTHESIS, BILATERAL CLINICAL INFORMATION: Screening. Asymptomatic. COMPARISON: Mammography: This study is compared with prior exams dating back to 2018. TECHNIQUE: Digital breast tomosynthesis is performed in both the craniocaudal and mediolateral oblique views along with computer-aided detection (CAD). Synthesized 2D images are generated from the tomosynthesis. FINDINGS: There are scattered areas of fibroglandular density (ACR BI-RADS breast composition Category b). There are no significant masses, abnormal calcifications, or other abnormalities. MM/MM tomosynthesis screening BI IMPRESSION: No mammographic evidence of malignancy. ASSESSMENT: BI-RADS BI-RADS 1 - Negative RECOMMENDATION: Routine annual mammography screening. 1 year F/U This examination should not preclude the clinical evaluation of a suspicious palpable abnormality. This patient's information was entered into a reminder system with a target due date for their next mammogram. Dictated By: Cecy Thakkar MD Signed By: <Electronically signed by Cecy Thakkar MD in OV> 11/27/23 0538 DD/ 1418 TD/TT: Pmp Project Manager: Lucila Barrientos MD IMG BI PROCEDURES Final Result documented in this encounter Visit Diagnoses Diagnosis Hemoptysis- Primary Hoarseness of voice Dysphonia Sore throat Acute pharyngitis documented in this encounter Care Teams Wiring Inspector Relationship Specialty Start Date End Date Francisco Almeida ANP [address] [place] [address] PCP - General Family Medicine 02/01/20 documented as of this encounter
--- OUTSIDE RECORDS SUMMARY | 2024-12-22 14:11 | XMS_ITS | Encounter Summary ---
Author Organization [facility] Address [address] [place] [address] [address] [place] [address] Care Team Providers Care Test Skein Winder Name Role Phone Dianne Smith Primary Care Provider [phone] Reason for Visit * Reason Onset Date Comments Appointment Request 11/21/2023 Encounter Details Date Type Department Care Team (Late st Contact Info) Description 11/21/2023 Telephone [facility] [address] [place] [address] [phone] Dianne Smith ANP [address] [place] [address] Appointment Request Social History Tobacco Use Types Packs/Day Years [...] AM EDT documented as of this encounter Miscellaneous Notes * Telephone Encounter - Jose E Hatfield - 11/21/2023 10:48 AM EST Tc from patient calling to reschedule office visit appt for 11/20 there is no availability at the moment documented in this encounter Plan of Treatment Upcoming Encounters Date Type Department Care Team (Late st Contact Info) Description 01/18/2025 11:00 AM EDT Office Visit [facility] [address] [place] [phone] Dianne Smith ANP [address] [place] [address] documented as of this encounter Visit Diagnoses Not on filedocumented in this encounter Care Teams Test Skein Winder Relationship Specialty Start Date End Date Dianne Smith ANP [address] [place] [address] PCP - General Family Medicine 02/01/20 documented as of this encounter
--- OUTSIDE RECORDS SUMMARY | 2024-12-22 14:11 | XMS_ITS | Encounter Summary ---
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 Machine Name Role Phone Dianne Smith Primary Care Provider [phone] Reason for Visit * Reason Comments Med Refill Encounter Details Date Type Department Care Team (Late st Contact Info) Description 05/27/2023 Refill [facility] [address] [place] [phone] Dianne Smith ANP [address] [place] [phone] Essential (primary) hypertension; Anxiety Social History Tobacco Use Types Packs/Day Years Used Date Smoking Tobacco: Never Passive Smoke Exposure: Never Smokeless Tobacco: Never Comments Unknown Sex and [...] Description 01/18/2025 11:00 AM EDT Office Visit [facility] [address] [place] [phone] Dianne Smith ANP [address] [place] [address] documented as of this encounter Visit Diagnoses Diagnosis Essential (primary) hypertension Unspecified essential hypertension Anxiety Anxiety state, unspecified documented in this encounter Care Teams Heel Seat Fitter Machine Relationship Specialty Start Date End Date Dianne Smith ANP [address] [place] [phone] PCP - General Family Medicine 02/01/20 documented as of this encounter
--- OUTSIDE RECORDS SUMMARY | 2024-12-22 14:12 | XMS_ITS | Clinical Summary ---
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 Spacer/Aero-Hol ding Chambers (OptiChamber Sonia) misc 1 each every 4 (four) hours if needed (asthma). 1 each 023 Active ibuprofen 400 MG tablet Take 1 tablet (400 mg) by mouth every 6 (six) hours if needed for moderate pain or fever for up to 30 doses. 30 tablet 023 Active acetaminophen (Tylenol) 500 MG tablet Take 2 tablets (1,000 mg) by mouth every 6 (six) hours if needed for moderate pain or fever for up to 25 doses. 40 tablet 023 Active cetirizine (ZyrTEC) 10 MG tabletIndicatio ns:Subacute sinusitis, unspecified location Take 1 tablet (10 mg) by mouth in the morning. 30 tablet 5 024 Active nicotine (Nicoderm CQ) 14 MG/24HR patch Place 1 patch on the skin 1 (one) time each day at the same time. 30 patch 024 Active diphenhydrAMINE (BENADryl) 25 MG tabletIndicatio ns:Acute upper respiratory infection Take 1 tab po at bedtime prn congestion, no more than 5 days -khmer 5 tablet 024 Active FREESTYLE LITE test stripIndication s:New onset type 2 diabetes mellitus (CMS/HCC) Use to test blood sugar 2 times daily 100 each 12 024 2024 Active Lancets miscIndications :New onset type 2 diabetes mellitus (CMS/HCC) Use to test blood sugar 2 times daily 100 each 11 Active Blood Glucose Monitoring Suppl (FreeStyle [place] Lite) w/Device kitIndications: New onset type 2 diabetes mellitus (CMS/HCC) Use to test blood sugar 2 times daily 1 kit Active Alcohol Swabs padsIndications :New onset type 2 diabetes mellitus (CMS/HCC) 1 each if needed (to clean skin). 100 each Active semaglutide (Ozempic) 2 MG/1.5ML solution pen-injectorInd ications:New onset type 2 diabetes mellitus (CMS/HCC) Take 0.25mg once weekly subcutaneously for 4 weeks, then 0.5mg once weekly 1 each Active albuterol 108 (90 Base) MCG/ACT inhaler INHALE 2 PUFFS BY MOUTH EVERY 4 HOURS NEEDED FOR WHEEZING OR SHORTNESS OF BREATH 18 g 1 024 Active metoprolol succinate XL (Toprol-XL) 100 MG 24 hr tabletIndicatio ns:Essential (primary) hypertension TAKE 1 TABLET BY MOUTH EVERY DAY 90 tablet 2 024 Active clonazePAM (KlonoPIN) 0.5 MG tabletIndicatio ns:Anxiety TAKE 1 TABLET BY MOUTH TWICE DAILY NEEDED FOR ANXIETY 60 tablet 1 025 Active pantoprazole (ProtoNix) 40 MG EC tabletIndicatio ns:Gastroesopha geal reflux disease, unspecified whether esophagitis present TAKE 1 TABLET BY MOUTH EVERY DAY BEFORE BREAKFAST, DO NOT BREAK, CRUSH, DISSOLVE OR CHEW 90 tablet 1 025 Active cyclobenzaprine (Flexeril) 10 MG tabletIndicatio ns:Acute pain of left shoulder Take 1 tablet (10 mg) by mouth at bedtime. 30 tablet 025 Active varenicline (Chantix) 0.5 MG tabletIndicatio ns:Tobacco dependence Take 0.5 mg PO once daily on Days 1 through 3, then 0.5 mg PO twice daily on Days 4 through 7, then start 1mg twice daily prescription; take with full glass of water 11 tablet 025 Active varenicline (Chantix) 1 MG tabletIndicatio ns:Tobacco dependence Take 1 tablet (1 mg) by mouth 2 times daily. Take with full glass of water. Start after initial 7d rx. 60 tablet 2 025 Active nicotine polacrilex (Nicorette) 2 MG gumIndications: Tobacco dependence Chew 1 each (2 mg) if needed for smoking cessation. Every 1-2 hours as needed in place of cigarette 100 each 11 025 Active fluticasone (Flonase) 50 MCG/ACT nasal sprayIndication s:Subacute sinusitis, unspecified location Administer 1 spray into each nostril Once per day. 16 g 2 025 Active losartan-hydroC HLOROthiazide (Hyzaar) 50-12.5 MG tabletIndicatio ns:Essential (primary) hypertension TAKE 1 TABLET BY MOUTH EVERY MORNING 90 tablet 1 025 Active losartan-hydroC HLOROthiazide (Hyzaar) 50-12.5 MG tabletIndicatio ns:Essential (primary) hypertension TAKE 1 TABLET BY MOUTH EVERY MORNING 90 tablet 1 024 2024 Discontinued Active Problems Problem Noted Date Diagnosed Date Screening for malignant neoplasm of colon 2024 Overview (10/11/2024): C-scope 2020, repeat 10 years New onset type 2 diabetes mellitus 08/09/2024 Acute upper respiratory infection 07/13/2024 Assessment & Plan (07/13/2024 1:33 PM EDT): COVID, Strep and Flu negative. -No evidence of respiratory distress. Symptoms mild. -No evidence of dehydration. -Supportive care advised. -Isolation recommendations discussed. -Prescribed short course of benadryl and recommended OTC decongestants. -ER precautions discussed. -Seek medical attention for worsening symptoms. Tobacco dependence 07/09/2023 Assessment & Plan (09/26/2023 11:14 AM EST): - low-dose lung cancer screening CT Hemoptysis 05/06/2023 Assessment & Plan (09/26/2023 11:14 AM EST): - possibley nose bleeding from allergic rhinitis - due to history, will evaluate with CT neck Assessment & Plan (05/06/2023 8:31 PM EDT): Most likely sinusitis, given hx smoking/vape, will order CXR, fu PCP Order T-spot, coags May need Ct scan/ ro bronchiectasis? Anxiety 05/06/2023 Assessment & Plan (05/06/2023 8:29 PM EDT): Has appt with counselor next week. Feels safe at home and has crisis number Subacute sinusitis 05/06/2023 Assessment & Plan (11/02/2024 7:01 PM EST): Rx Bactrim x 7d, she is allergic to penicillin Rest (sleep at least 8 hours a night). She will be out of work tomorrow, can go back on 2024. Hydrate with plenty of water (avoid caffeine and alcohol). Use saline nose drops to loosen mucus + Flonase nasal Take Acetaminophen (Tylenol??)/Ibuprofen as needed to reduce fever, headache, body aches or discomfort Gargle with salt water and use throat sprays/lozenges for throat pain. Use heated, humidified air. If you do not have a humidifier, take hot showers. Cover coughs and sneezes using the crook of your elbow. If you have a fever, stay home and away from others (self isolation) until fever-free for 72 hours (temperature should be less than 100??F without medication). Assessment & Plan (05/06/2023 8:28 PM EDT): Order Z-pack, Flonase, zyrtec Out of work x 2 days Prediabetes 12/16/2017 Overview (07/19/2024): Metformin XR 500mg daily Had 1 POC 6.5% A1c 03/2024, repeat serum was 6.2. Then 7.6 07/19/24 Could not tolerate metformin for GI effects even if XR formulation and taken with food. Will initiate GLP1. Would really benefit from CGM monitor as her diet is generally optimized by her description and it is not always evident what makes people's BG go up. Essential hypertension 08/26/2017 Overview (07/19/2024): Metoprolol succ XL 100mg 24hr daily Losartan-HCTZ 50-12.5mg Goal </= 130/80. Continue to encourage low salt diet, regular exercise, home BP monitoring, compliance with medications. Call clinic if BP is frequently >150/90 Go to ED/call 911 if > 170/100 and having sx such as HERRERA, visual changes, chest pain, SOB Last renal function: Lab Results Component Value Date GLUCOSE 92 09/25/2023 NA 139 09/25/2023 K 4.0 09/25/2023 CO2 30 (H) 09/25/2023 CL 101 09/25/2023 BUN 12 09/25/2023 CREATININE 0.70 09/25/2023 EGFR >60 09/25/2023 Lab Results Component Value Date MICROALBCREA NOTE 06/21/2022 No results found for: MICROALBCREU Assessment & Plan (09/26/2023 11:14 AM EST): - Elevated today - Continue current medications and lifestyle modifications - Follow up with PCP as scheduled Recurrent major depression 08/26/2017 Overweight 08/26/2017 Resolved Problems Problem Noted Date Diagnosed Date Resolved Date Sore throat 05/06/2023 03/19/2024 Encounters Date Type Department Care Team Description 12/01/2024 Refill [facility] [address] [place] [address] Francisco Almeida ANP Essential (primary) hypertension 11/02/2024 6:40 PM EST Office Visit [facility] [address] [place] [address] Carin Whitfield MD Subacute maxillary sinusitis (Primary Dx); Sore throat; Nasal congestion; Subacute sinusitis, unspecified location 11/02/2024 Telephone [facility] [address] [place] [address] Francisco Almeida ANP Chart Prep 10/26/2024 Telephone [facility] [place] [address] Mora Canas RN TeleBP Check 10/25/2024 Telephone [facility] [address] [place], [place] [phone] Francisco Almeida ANP Prior Authorization (BD PPO PA Request: Dilip) 10/11/2024 1:15 PM EST Office Visit [address] [id number] Francisco Almeida ANP New onset type 2 diabetes mellitus (CMS/HCC) (Primary Dx); Essential hypertension; Screening for malignant neoplasm of colon; Tobacco dependence; Acute pain of left shoulder 10/11/2024 Travel 10/11/2024 Refill [facility] [address] [place], [place] [phone] Francisco Almeida ANP Gastroesophageal reflux disease, unspecified whether esophagitis present; Prediabetes 10/02/[address] [phone] Francisco Almeida ANP Anxiety from Last 3 Months Immunizations Name Administration Dates Next Due Influenza injectable quadriv alent IIV4 with preservative 05/29/2018,11/13/2017 Influenza injectable quadriv alent preservative free 09/23/2023,06/21/2022,09/26/2020 Pfizer Covid-19 Vaccine 12+ 09/23/2023 Pneumococcal Conjugate PCV 20 09/23/2023 Pneumococcal Polysaccharide PPSV23 01/20/2019 Tdap 03/15/2024,01/20/2019 Social History Tobacco Use Types Packs/Day Years Used Date Smoking Tobacco: Every Day Cigarettes Passive Smoke Exposure: Current Smokeless Tobacco: Never Tobacco Cessation:Ready to Q uit: Not Asked; Counseling Given: Not Answered Depression Answer Date Recorded Patient Health Questionnaire-9 [...] Recorded Patient Health Questionnaire-2 Score 0 01/19/2024 Internet Access Answer Date Recorded Internet Access Q1 Yes 05/17/2024 Internet Access Q2 Not on file 05/17/2024 Comments Unknown Sex and Gender Information Value Date Recorded Sex Assigned at Female 07/15/2022 10:32 AM EDT Legal Sex Female 10:32 AM EDT Gender Identity Female 07/15/2022 10:32 AM EDT Sexual Orientation Lesbian or [place] 07/15/2022 10 :32 AM EDT Last Filed Vital Signs Vital Sign Reading Time Taken Comments Blood Pressure 140/92 11/02/2024 6:37 PM EST Pulse 98 11/02/2024 6:16 PM EST Temperature 37.1 ??C (98.8 ??F) 11/02/2024 6:16 PM ES T Respiratory Rate 19 11/02/2024 6:16 PM EST Oxygen Saturation 99% 11/02/2024 6:16 PM EST Inhaled Oxygen Concentration - - Weight 87.1 kg (192 lb 2 oz) 11/02/2024 6:16 PM EST Height 175.3 cm (5' 9 ) 11/02/2024 6:16 PM EST Body Mass Index 28.37 11/02/2024 6:16 PM EST Plan of Treatment Upcoming Encounters Date Type Department Care Team (Late st Contact Info) Description 01/18/2025 11:00 AM EDT Office Visit [facility] [address] [place], [place] [phone] Francisco Almeida, ANP [address] [place] [address] Health Maintenance Due Date Last Done Comments CT Colonography 1972 FIT DNA/Cologuard 1972 FIT 1972 FOBT 1972 Sigmoidoscopy 1972 Diabetes: Foot Exam 1982 Eye Exam 1982 Family Planning (PISQ) 1987 Hepatitis C Screening 1990 Hepatitis B Vaccines (1 of 3 - 19+ 3-dose series) 1991 Zoster Vaccines (1 of 2) 2022 Diabetes: Urine Protein Screening 06/21/2023 06/21/2022 COVID-19 Vaccine ( season) 2024 09/23/2023, 02/23/2021, 01/26/2021 Influenza Vaccine (#1) 2024 , 06/21/2022, 09/26/2020, Additional history exists Lipid Panel 09/25/2024 09/25/2023, 1003/2022, 05/29/2020 Mammogram 11/05/2024 11/05/2023, 01/2019, 11/18/2017 SDOH Screening 01/11/2025 01/12/2024 Depression Screening 01/18/2025 01/19/2024, 01/19/20 24 Diabetes: Hemoglobin A1C 04/10/2025 025, 07/19/2024, 03/23/2024, Additional history exists Cervical Cancer Screening 09/26/2025 HPV/Cotest 09/26/2025 09/26/2020 Pap Smear 09/26/2025 09/26/2020 Alcohol/Substance Use Screening 10/11/2025 10/11/2024 Tobacco Screening 11/02/2025 11/02/2024 Colonoscopy 09/15/2030 Colorectal Cancer Screening 09/15/2030 DTaP/Tdap/Td Vaccines (3 - Td or Tdap) 03/15/2034 03/15/2024, 01/20/2019 RSV Patients and Patients Aged 60 years or older (1 - 1-dose 75+ series) 2047 HIV Screening Completed 05/29/2020 Pneumococcal Vaccine: 50+ Years Completed 09/23/2023, 01/20/2019 HIB Vaccines Aged Out No longer eligi ble based on patient's age to complete this topic HPV Vaccines Aged Out No longer eligi ble based on patient's age to complete this topic Hepatitis A Vaccines Aged Out No long er eligible based on patient's age to complete this topic IPV Vaccines Aged Out No longer eligi ble based on patient's age to complete this topic Meningococcal Vaccine Aged Out No pilar heladio eligible based on patient's age to complete this topic RSV under 20 months Aged Out No longe r eligible based on patient's age to complete this topic Rotavirus Vaccines Aged Out No longer eligible based on patient's age to complete this topic Procedures Procedure Name Priority Date/Time Associated Diagnosis Comments POCT INFLUENZA B (ID NOW RAPID MOLECULAR) Routine 11/02/2024 6:24 PM EST Nasal congestion POCT INFLUENZA A (ID NOW RAPID MOLECULAR) Routine 11/02/2024 6:23 PM EST Nasal congestion POCT COVID-19 AG BATISTA ID NOW Routine 11/02/2024 6:22 PM EST Sore throat POC BATISTA ID NOW STREP A Routine 11/02/2024 6:22 PM EST Sore throat POCT GLUCOSE Routine 10/11/2024 1:46 PM EST New onset type 2 diabetes mellitus (CMS/HCC) POCT GLYCATED HEMOGLOBIN, TOTAL Routine 10/11/2024 1:45 PM EST New onset type 2 diabetes mellitus (CMS/HCC) BI MAMMOGRAM SCREENING TOMOSYNTHESIS BILATERAL Routine 11/05/2023 2:18 PM EST LIPID PANEL WITH REFLEX TO DIRECT LDL Routine 09/25/2023 8:59 AM EST Essential hypertension ALBUMIN, RANDOM URINE W/CREATININE Routine 06/21/2022 10:31 AM EDT HPV MRNA E6/E7 Routine 09/26/2020 10:19 AM EST THINPREP PAP Routine 09/26/2020 10:19 AM EST HIV 1/2 ANTIGEN/ANTIBODY, FOURTH GENERATION W/RFL Routine 05/29/2020 9:40 AM EDT from Last 3 Months or Most Recently Relevant to Health Maintenance Results * POCT Rapid Influenza B BATISTA ID NOW (11/02/2024 6:24 PM EST) [facility] Influenza B Negative Negative, Indeterminate [facility] QC Media Lot # [id number] [facility] Lot# Expiration Date [facility] Swab 11/02/2024 6:24 PM EST us Carin Whitfield MD POINT OF CARE TEST ENTER /EDIT ORDERABLES Final Result Performing Organization Address City/[facility]/ZIP Co de Phone Number [facility] [address] [place] [phone] * POCT Rapid Influenza A BATISTA ID NOW (11/02/2024 6:23 PM EST) [facility] Influenza A Negative Negative, Indeterminate [facility] QC Media Lot # [id number] [facility] Lot# Expiration Date [facility] Swab 11/02/2024 6:23 PM EST Carin Whitfield MD POINT OF CARE TEST ENTER /EDIT ORDERABLES Final Result Performing Organization Address City/[facility]/ZIP Co de Phone Number [facility] [address] [place] [phone] * POCT Rapid Strep A BATISTA ID NOW (11/02/2024 6:22 PM EST) [facility] Rapid Strep A Screen Negative Negative, None Detected QC Media Lot # [id number] Lot# Expiration Date Swab 11/02/2024 6:22 PM EST Result [facility] Carin Whitfield MD POINT OF CARE TEST ENTER /EDIT ORDERABLES Final Result * POCT Rapid Covid-19 BATISTA ID NOW (11/02/2024 6:22 PM EST) Pathologist [facility] Coronavirus Antigen PCR Negative Negative, Indeterminate, None Detected, Invalid, Specimen unsatisfactory for evaluation, Weakly Positive QC Media Lot # [id number] Lot# Expiration Date Swab 11/02/2024 6:22 PM EST Result [facility] Carin Whitfield MD POINT OF CARE TEST ENTER /EDIT ORDERABLES Final Result * POCT Glucose (10/11/2024 1:46 PM EST) Pathologist [facility] Glucose Blood, POC 87 60 - 200 mg/dL QC Media Lot # [id number] Lot# Expiration Date ,025 Blood Capillary blood specimen / Unknown 10/11/2024 1:46 PM EST Result [facility] us Francisco BELLAMY POINT OF CARE TEST ENTER/EDIT OR DERABLES Final Result * POCT HGB A1C (10/11/2024 1:45 PM EST) Pathologist [facility] Hemoglobin A1C 6.0 4.0 - 6.0 % QC Media Lot # [id number] Lot# Expiration Date Blood 10/11/2024 1:45 PM EST us Francisco BELLAMY POINT OF CARE TEST ENTER/EDIT OR DERABLES Final Result * BI Mammogram Screening Tomosynthesis Bilateral (11/05/2023 2:18 PM EST) Anatomical Region Laterality Modality Breast Bilateral Mammography 11/05/2023 2:18 PM EST Narrative 11/27/2023 5:42 AM EDT ? [facility] ? [address] ?[place] [address] ? Mammography Report ? Signed ? Patient: Quinn Fernandez,Stacey ?MR# ?? : [id number] ? : 1970 ?Acct:[id number] ? Age/Sex: 53 / F ?ADM Date: 11/05/23 ? Loc: HO.MAMMO ? Attending Dr: Lucila Barrientos MD ? Ordering Physician: Lucila Barrientos MD ?Results: 1Negative ? Date of Service: 11/05/23 ?Follow Up: 1 Year From Orig ?? inal Mammogram ? Procedure(s): MM tomosynthesis screening BI ?? Accession Number(s): [id number] ? cc: FRANCISCO ALMEIDA NP; Lucila Barrientos [...] by Cecy Thakkar MD in OV> ? 11/27/23 05 ? DD/ 1418 ? TD/TT: ? Landscape Specialist: ? Procedure Note Donotuseinterpreter, Image - 11/27/2023 [facility] [address] [place] [address] Mammography Report Signed Patient: Stacey ShawMR# : [id number] : 1970Acct:[id number] Age/Sex: 53 / FADM Date: 11/05/23 Loc: SARAH.MAMMO Attending Dr: Lucila Barrientos MD Ordering Physician: Lucila Barrientos MDResults: 1Negative Date of Service: 11/05/23Follow Up: 1 Year From Orig inal Mammogram Procedure(s): MM tomosynthesis screening BI Accession Number(s): [id number] cc: FRANCISCO ALMEIDA BRANCH OFFICER; Lucila Barrientos MD EXAMINATION: MM SCREENING DIGITAL [...] in OV> 11/27/23 0538 DD/ 1418 TD/TT: Landscape Specialist: Lucila Barrientos MD IMG BI PROCEDURES Final Result * (ABNORMAL) Lipid Panel with Reflex to Direct LDL (09/25/2023 8:59 AM EST) Triglycerides 111 <150 mg/dL [facility] Comment:Desirable Triglyceri de: less than 150 mg/dLBorderline High Triglyceride 150-199 mg/dLHigh Triglyceride: 200-499 mg/dLVery High Triglyceride: greater than or equal to 5OO mg/dL Cholesterol 163 <200 mg/dL [facility] Comment:Desirable Cholestero l: less than 200 mg/dLBorderline High Cholesterol: 200-239 mg/dLHigh Cholesterol: greater than 239 mg/dL LDL Cholesterol Calculated 103(H) <100 mg/dL [facility] Comment:Desirable LDL: less than 100 mg/dLNear Optimal/Above Optimal LDL: 110- 129 mg/dLBorderline High LDL: 130-159 mg/dLHigh LDL: 160-189 mg/dLVery High LDL: greater than or equal to 190 mg/dL HDL Cholesterol 38(L) >40 mg/dL [facility] Comment:Desirable HDL: great er than 40 mg/dL Note: This HDL assay may give artificially low results in patients with liver disease. Blood 09/25/2023 8:59 AM EST 09/25/2023 11:39 AM EST Lucila Barrientos MD LAB BLOOD ORDERABLES Final Resul t [facility] [address] [place] [address] [phone] * ALBUMIN, RANDOM URINE W/CREATININE (06/21/2022 10:31 AM EDT) Microalbumin Urine <0.2 See Note: mg/dL [facility] Comment: Reference Range: ?? Reference Range Not established Microalb/Creat Ratio NOTE <30 mcg/mg creat [facility] Comment: NOTE: The urine albumin value is less than ?? 0.2 mg/dL therefore we are unable to calculate ?? excretion and/or creatinine ratio. ?? The ADA defines abnormalities in albumin excretion as follows: ?? Albuminuria Category ?Result (mcg/mg creatinine) ?? Normal to Mildly increased ?? <30 Moderately increased ? 30-299 ?? Severely increased ? > OR = 300 ?? The ADA recommends that at least two of three specimens collected within a 3-6 month period be abnormal before considering a patient to be within a diagnostic category. Creatinine, Urine 70 20 - 275 mg/dL [facility] 06/21/2022 10:3 1 AM EDT Francisco [facility] LAB URINE ORDERABLES Final Resul t Performing Organization Address [facility] de Phone Number [facility] * THINPREP PAP (09/26/2020 10:19 AM EST) Pathologist [facility] Clinical Information: None given [facility] COMMENT SEE COMMENT [facility] Comment: EXPLANATORY NOTE: ? The Pap is a screening test for cervical cancer. It is ?? not a diagnostic test and is subject to false negative ?? and false positive results. It is most reliable when a ?? satisfactory sample, regularly obtained, is submitted ?? with relevant clinical findings and history, and when ?? the Pap result is evaluated along with historic and ?? current clinical information. ?? Physics Professor : SEE COMMENT [facility] Comment: CMG, CT(ASCP) CT screening location: [facility] [place] ??[id number] Interpretation/R esult: Negative for intraepithelial lesion or malignancy. [facility] LMP: NONE [facility]IV[facility] Prev. BX: NONE [facility]IV[facility] Prev. PAP: NONE [facility]IVEN [facility] SOURCE: None given [facility] Statement Of Adequacy: SEE COMMENT [facility] Comment: Satisfactory for evaluation. Endocervical/transformation zone component absent. Age and/or menstrual status not provided 09/26/2020 10:1 9 AM EST Francisco [facility] LAB PATHOLOGY ORDERABLES Final R esult Performing Organization Address [facility] Phone Number [facility] [address] * HPV mRNA E6/E7 (09/26/2020 10:19 AM EST) HPV nRNA E6/E7 Not Detected Not Detected [facility] Comment: This test was performed using the APTIMA HPV Assay ([employer] This assay detects E6/E7 viral messenger RNA (mRNA) from 14 high-risk HPV types (16,18,31,33,35,39,45,51,52,56,58,59,66,68). ?? The analytical performance characteristics of this assay have been determined by [employer]. The modifications have not been cleared or approved by the FDA. This assay has been validated pursuant to the CLIA regulations and is used for clinical purposes. 09/26/2020 10:1 9 AM EST Francisco Almeida ANP LAB BLOOD ORDERABLES Final Resul t Performing Organization Address [facility] de Phone Number [facility] [address] * HIV 1/2 ANTIGEN/ANTIBODY,FOURTH GENERATION W/RFL (05/29/2020 9:40 AM EDT) HIV-1/2 ANTIGEN AND ANTIBODIES, 4TH GENERATION W/ REFLEX NON-REACT YANNI NON-REACT YANNI [facility] Comment: HIV-1 antigen and HIV-1/HIV-2 antibodies were not detected. There is no laboratory evidence of HIV infection. ?? PLEASE NOTE: This information has been disclosed to you from records whose confidentiality may be protected by state law. ??If your state requires such protection, then the state law prohibits you from making any further disclosure of the information without the specific written consent of the person to whom it pertains, or as otherwise permitted by law. A general authorization for the release of medical or other information is NOT sufficient for this purpose. ? For additional information please refer to [email or web address] (This link is being provided for informational/ educational purposes only.) ? The performance of this assay has not been clinically validated in patients less than 2 years old. ?? HIV-1/2 ANTIGEN AND ANTIBODIES, 4TH GENERATION W/ REFLEX NON-REACT YANNI NON-REACT YANNI [facility] Comment: HIV-1 antigen and HIV-1/HIV-2 antibodies were not detected. There is no laboratory evidence of HIV infection. ?? PLEASE NOTE: This information has been disclosed to you from records whose confidentiality may be protected by state law. ??If your state requires such protection, then the state law prohibits you from making any further disclosure of the information without the specific written consent of the person to whom it pertains, or as otherwise permitted by law. A general authorization for the release of medical or other information is NOT sufficient for this purpose. ? For additional information please refer to http://[employer]/faq/YCN428 (This link is being provided for informational/ educational purposes only.) ? The performance of this assay has not been clinically validated in patients less than 2 years old. ?? HIV-1/2 ANTIGEN AND ANTIBODIES, 4TH GENERATION W/ REFLEX NON-REACT YANNI NON-REACT YANNI [facility] Comment: HIV-1 antigen and HIV-1/HIV-2 antibodies were not detected. There is no laboratory evidence of HIV infection. ?? PLEASE NOTE: This information has been disclosed to you from records whose confidentiality may be protected by state law. ??If your state requires such protection, then the state law prohibits you from making any further disclosure of the information without the specific written consent of the person to whom it pertains, or as otherwise permitted by law. A general authorization for the release of medical or other information is NOT sufficient for this purpose. ? For additional information please refer to http://education.[employer]/faq/TMM633 (This link is being provided for informational/ educational purposes only.) ? The performance of this assay has not been clinically validated in patients less than 2 years old. ?? 05/29/2020 9:40 AM EDT us Francisco BELLAMY LAB BLOOD ORDERABLES Final Resul t [facility] [address] from Last 3 Months or Most Recently Relevant to Health Maintenance Insurance PPO Care Teams Finishing And Shipping Supervisor Relationship Specialty Start Date End Date Francisco Almeida ANP [address] [place] [address] PCP - General Family Medicine 02/01/20
--- OUTSIDE RECORDS SUMMARY | 2024-12-22 14:12 | XMS_ITS ---
Author Name [facility] Organization Unknown Results Test Name/Text Value Interpretation Date Range Source AMYLASE SERPL [facility] 23U/L Below low normal [id number] 2 9 - 103 [facility] LDH SERPL L TO P CCNC 174U/L Normal [id number] 125 - 220 [facility] AST SERPL [facility] 21U/L Normal [id number] 5 - 40 [facility] ALP SERPL-CCNC 83U/L Normal [id number] 34 - 104 [facility] ALT SERPL [facility] 24U/L Normal [id number] 7 - 52 [facility] LIPASE SERPL [facility] 46U/L Normal [id number] 11 - 82 [facility] MAGNESIUM SERPL MCNC 1.8mg/dL Normal [id number] 1.7 - 2.8 [facility] BILIRUB SERPL [facility]NC 0.4mg/dL Normal [id number] 0.3 - 1 [facility] BILIRUB DIRECT SERPL [facility]NC 0.1mg/dL Normal [id number] 0 - 0.2 [facility] CREAT SERPL [facility] 0.7mg/dL Normal [id number] 0.5 - 1 [facility] CALCIUM SERPL [facility] 8.5mg/dL Normal [id number] 8.4 - 10 .2 [facility] SODIUM SERPL SCNC 133mmol/L Below low normal [id number] 13 5 - 145 [facility] ANION GAP SERPL SCNC 9mmol/L Normal [id number] 5 - 14 [facility] Glomerular filtration rate/1.73 sq M. predicted 105 Normal [id number] 60 - CT [facility] HCO3 SER SCNC 27mmol/L Normal [id number] 24 - 32 [facility] GLUCOSE SERPL MCNC 180mg/dL Normal [id number] 70 - 199 [facility] BUN SERPL [facility]NC 13mg/dL Normal [id number] 7 - 17 [facility] CHLORIDE SERPL SCNC 97mmol/L Below low normal [id number] 98 - [facility] POT[facility]SI[facility] 3.6mmol/L Normal [id number] 3.5 - [facility] PLATELET NO. BLD AUTO 231K/uL Normal [id number] 150 - 450 [facility] RBC NO. BLD AUTO 4.38M/uL Normal [id number] 4.2 - 5.[facility] NUCLEATED RBC 0% Normal [id number] 0 - [address] [facility] LYMPHOCYTES NO. BLD AUTO 1.3K/uL Normal [id number] 1 - 3.2 [facility] EOSINOPHIL NO. BLD AUTO 0.2K/uL Normal [id number] 0 - 0.5 [facility] MCH RBC QN AUTO 28.8pg Normal [id number] 25 - 33 [facility] MCHC RBC AUTO MCNC 33.3g/dL Normal [id number] 32 - 36 [facility] MONOCYTES NFR BLD AUTO 9.9% Normal [id number] 2 - 12 [facility] IMMATURE GRANULOCYTE, ABSOLUTE 0.03k/uL Normal [id number] - 0.1 [facility] LYMPHOC[facility]TES NFR BLD AUTO 16.4% Below low normal [id number] 20 - 48 [facility] EOSINOPHIL NFR BLD AUTO 2.2% Normal [id number] 0 - 6 [facility] HGB BLD MCNC 12.6g/dL Normal [id number] 12.5 - 16 [facility] NEUTROPHILS NO. BLD AUTO 5.8K/uL Normal [id number] 1. 8 - 7.8 [facility] WBC NO. BLD AUTO 8.1K/uL Normal [id number] 4 - 10.[facility] BASOPHILS NFR BLD AUTO 0.4% Normal [id number] 0 - 2 [facility] MONOCYTES NO. BLD AUTO 0.8K/uL Normal [id number] 0 - 0.8 [facility] MCV RBC AUTO 86.3fL Normal [id number] 78 - 100 [facility] NEUTROPHILS NFR BLD AUTO 70.7% Normal [id number] 44 - 74 [facility] IMMATURE GRANULOCYTE, PERCENT 0.4% Normal [id number] 0 - 1 [facility] BASOPHILS IN BLOOD BY AUTOMATED COUNT 0K/uL Normal [id number] 0 - 0.2 [facility] PMV BLD AUTO 9.5fL Normal [id number] 7.4 - 11.4 CTT HS RDW RBC AUTO RTO 13.8% Normal 12.1 - 16. 2 [facility] HCT VFR BLD AUTO 37.8% Normal [id number] 37 - [facility] History of Medication Use Medication Directions Dispensed Refills Start Date End Date Stat azithromycin (ZITHROMAX) 500 MG tablet Take 1 tablet (500 mg total) by mouth daily for 5 days. 04/15/2024 04/21/2024 active Problems Problem Status Onset Date Problem Type Date of Resoluti on Source Colitis active EncounterDiagnosisAct [facility] Uterine fibroid active EncounterDiagnosisAct [facility] Immunizations Vaccine Date Source Lot Number Status Tdap 03/15/2024 [facility] [id number] completed Encounters Encounter Type Encounter Reason Primary Diagnosis Location Date Ambulatory Nausea with vomiting Nausea with vomiting [facility] 07/14/2024 Emergency Noninfective gastroenteritis and colitis, unspecified Noninfective gastroenteritis and colitis, unspecified [facility] 04/15/2024 Emergency Unspecified open wou nd of unspecified finger without damage to nail, initial encounter Unspecified open wound of unspecified finger without damage to nail, initial encounter [facility] 03/15/2024 Care Team Organization Name Specialty Phone Email Start Date End Da shruthi [facility] 07/15/2024 [facility] 2023 [facility] FRANCISCO ALMEIDA Primary Care 03/16/20 [facility] 03/16/2024
--- OUTSIDE RECORDS SUMMARY | 2024-12-22 14:12 | XMS_ITS | Clinical Summary ---
Author Organization [address] Address [address] [place] [phone] Care Team Providers Care Cancer Registry Coordinator Name Role Phone No, Pcp (Do Not Change Name) Primary Care Provid er Unavailable Allergies Active Allergy Reactions Criticality Noted Date Comments Morphine Vomiting 04/15/2024 Penicillins Unknown 04/15/2024 Medications metoprolol succinate XL (TOPROL-XL) 100 mg 24 hr tablet Take 1 tablet (100 mg total) by mouth daily. 06/04/2024 Active loratadine (CLARITIN) 10 mg tablet Take 1 tablet (10 mg total) by mouth daily. 06/04/2024 Active metFORMIN XR (GLUCOPHAGE-XR) 500 mg 24 hr tablet TAKE 1 TABLET BY MOUTH ONCE DAILY WITH EVENING MEAL DO NOT BREAK, CRUSH, DISSOLVE OR CHEW 04/20/2024 Active clonazePAM (KLONOPIN) 0.5 mg tablet Take 1 tablet (0.5 mg total) by mouth every 12 (twelve) hours as needed for anxiety. 06/04/2024 Active cyclobenzaprine (FLEXERIL) 10 mg tablet take 1 tablet by mouth every day at bedtime 04/07/2024 Active ibuprofen (ADVIL,MOTRIN) 600 mg tablet Take 1 tablet (600 mg total) by mouth 3 times a day. 04/07/2024 Active losartan-hydroc hlorothiazide (HYZAAR) 50-12.5 mg per tablet Take 1 tablet by mouth every morning. 05/31/2024 Active omeprazole (PRILOSEC) 20 mg capsule Take 1 capsule (20 mg total) by mouth daily. 06/04/2024 Active pantoprazole (PROTONIX) 40 mg tablet TAKE 1 TABLET BY MOUTH EVERY DAY BEFORE BREAKFAST, DO NOT BREAK, CRUSH, DISSOLVE OR CHEW 04/20/2024 Active tranexamic acid (LYSTEDA) 650 mg tablet TAKE 2 TABLETS BY MOUTH THREE TIMES DAILY FOR 5 DAYS 06/23/2024 Active Immunizations Name Administration Dates Next Due Tdap 03/15/2024 Family History Relation Name Status Comments Father Mother Social History Tobacco Use Types Packs/Day Years Used Date Smoking Tobacco: Every Day Cigarettes Smokeless Tobacco: Never Tobacco Cessation:Ready to Q uit: Not Asked; Counseling Given: Not Answered Alcohol Use Standard Drinks/Week Comments Yes 0 (1 standard drink = 0.6 oz pur e alcohol) Comments Unknown Sex and Gender Information Value Date Recorded Sex Assigned at Not on file Legal Sex Female 7:31 AM EDT Gender Identity Not on file Sexual Orientation Not on file Last Filed Vital Signs Vital Sign Reading Time Taken Comments Blood Pressure 129/89 07/14/2024 6:02 PM EDT Pulse 94 07/14/2024 6:02 PM EDT Temperature 36.7 ??C (98.1 ??F) 07/14/2024 6:02 PM ED T Respiratory Rate 16 07/14/2024 6:02 PM EDT Oxygen Saturation 98% 07/14/2024 6:02 PM EDT Inhaled Oxygen Concentration - - Weight 87.1 kg (192 lb) 07/14/2024 6:02 PM EDT Height 175.3 cm (5' 9 ) 07/14/2024 6:02 PM EDT Body Mass Index 28.35 07/14/2024 6:02 PM EDT Plan of Treatment Health Maintenance Due Date Last Done Comments Pneumococcal Vaccine (2 - 49 years) (1 of 2 - PCV) 1978 HIV screening 1985 Hepatitis C screening 1990 Pneumococcal Vaccine (50+ ye ars) (1 of 2 - PCV) 1991 Cervical cancer screening 1993 Breast cancer screening 2012 Lipid disorder screening 2012 Colon cancer screening, Colonoscopy 2017 Diabetes screening 2017 Shingles vaccine (Shingrix) (1 of 2 - Shingrix (RZV) 2 Dose Standard Series) 2022 Covid-19 vaccine series (1 - season) 2024 Lung Cancer Screening 04/15/2025 04/15/2024 Influenza vaccine 05/16/2025 Tetanus adult (Td q 10,TDAP once) 03/15/2034 024 RSV Immunization (1 - 1-dose 75+ series) 2047 Meningococcal Vaccine Aged Out No pilar heladio eligible based on patient's age to complete this topic Insurance BS BS BS Care Teams Cancer Registry Coordinator Relationship Specialty Start Date End Date No, Pcp (Do Not Change Name) PCP - General 07/14/24
--- OUTSIDE RECORDS SUMMARY | 2024-12-22 14:12 | XMS_ITS | Encounter Summary ---
Author Organization [employer] [facility] Address [address] [place] [address] [address] [place] [address] Care Team Providers Care Automotive Collision Estimator Name Role Phone Dianne Smith Primary Care Provider [phone] Encounter Details Date Type Department Care Team (Late st Contact Info) Description 02/11/2023 Orders Only [facility] [address] [place] [address] Smitha Beck LPN Social History Tobacco Use Types Packs/Day Years Used Date Smoking Tobacco: Never Smokeless Tobacco: Never Comments Unknown Sex [...] 11:00 AM EDT Office Visit [facility] [address] [place] [address] Dianne Smith ANP [address] [place] [address] documented as of this encounter Visit Diagnoses Not on filedocumented in this encounter Care Teams Automotive Collision Estimator Relationship Specialty Start Date End Date Dianne Smith ANP [address] [place] [address] PCP - General Family Medicine 02/01/20 documented as of this encounter
--- OUTSIDE RECORDS SUMMARY | 2024-12-22 14:12 | XMS_ITS | Clinical Summary ---
Author Organization [facility] ity Address [address] [place] [phone] Care Team Providers Care Cooker Process Cheese Name Role Phone Dianne Smith NP Primary Care Provider Social History Tobacco Use Types Packs/Day Years Used Date Smoking Tobacco: Never Assessed Comments Unknown Sex and Gender Information Value Date Recorded Sex Assigned at Not on file Legal Sex Female 1:51 PM EST Gender Identity Not on file Sexual Orientation Not on file Obstetrics History Plan of Treatment Health Maintenance Due Date Last Done Comments Breast Cancer Screening 1972 Hepatitis B Vaccines (1 of 3 - 19+ 3-dose series) 1991 Cervical Cancer Screening: P ap Smear 1993 Pneumococcal Vaccine: 50+ Ye ars (1 of 1 - PCV) 2022 Zoster Vaccines (1 of 2) 2022 COVID-19 Vaccine (2023-2 5 season) 2024 Colorectal Cancer Screening: Colonoscopy 06/30/2024 Depression Screening 06/30/2024 HIV Screening 06/30/2024 Hepatitis C Screening 06/30/2024 Social Influencers of Health Screening 06/30/2024 Influenza Vaccine (Season Ended) 2025 DTaP,Tdap,and Td Vaccines (2 - Td or Tdap) 03/15/2034 03/15/2024 HIB Vaccines Aged Out No longer eligi [...] on patient's age to complete this topic MMR Vaccines Aged Out No longer eligi ble based on patient's age to complete this topic Meningococcal ACWY Vaccine Aged Out N o longer eligible based on patient's age to complete this topic Meningococcal B Vaccine Aged Out No l onger eligible based on patient's age to complete this topic Pneumococcal Vaccine: Pediat rics (0 to 5 Years) and At-Risk Patients (6 to 64 Years) Aged Out No longer eligi ble based on patient's age to complete this topic RSV Immunization Patients Un shelly 20 months Aged Out No longer eligible b ased on patient's age to complete this topic Varicella Vaccines Aged Out No longer eligible based on patient's age to complete this topic Care Teams Cooker Process Cheese Relationship Specialty Start Date End Date Dianne Smith NP [address] [place] [phone] PCP - General 03/15/24
--- OUTSIDE RECORDS SUMMARY | 2024-12-22 14:12 | XMS_ITS | Encounter Summary ---
Author Organization [employer] [facility] Address [address] [place] [address] [address] [place] [address] Care Team Providers Care Box Car Washer Name Role Phone Dianne Smith Primary Care Provider [phone] Encounter Details Date Type Department Care Team (Late st Contact Info) Description 11/11/2022 Orders Only [facility] MED & PEDS [address] [place] [address] Smitha Beck LPN Social History Tobacco Use [...] Description 01/18/2025 11:00 AM EDT Office Visit [facility] [address] [place] [address] Dianne Smith ANP [address] [place] [address] documented as of this encounter Visit Diagnoses Not on filedocumented in this encounter Care Teams Box Car Washer Relationship Specialty Start Date End Date Dianne Smith ANP [address] [place] [address] PCP - General Family Medicine 02/01/20 documented as of this encounter
--- OUTSIDE RECORDS SUMMARY | 2024-12-22 14:12 | XMS_ITS | Clinical Summary ---
Author Organization [facility] Address [address] [place] [address] Care Team Providers Care Cutter Apprentice Hand Name Role Phone Dianne Smith NP Primary Care Provider [phone] Allergies Active Allergy Reactions Criticality Noted Date Comments Morphine 04/15/2024 Penicillins 04/15/2024 Medications No known medications Active Problems No known active problems Immunizations Name Administration Dates Next Due Tdap 03/15/2024 Social History Tobacco Use Types Packs/Day Years Used Date Smoking Tobacco: Never Assessed Sex and Gender Information Value Date Recorded Sex Assigned at Female 03/15/2024 8:51 PM EDT Gender Identity Not on file Sexual Orientation Not on file Job Start Date Occupation Industry Not on file Not on file Not on file Last Filed Vital Signs Vital Sign Reading Time Taken Comments Blood Pressure 146/90 04/15/2024 3:23 PM EDT Pulse 84 04/15/2024 3:23 PM EDT Temperature 37.3 ??C (99.1 ??F) 04/15/2024 12:09 PM E DT Respiratory Rate 18 04/15/2024 3:23 PM EDT Oxygen Saturation 98% 04/15/2024 3:23 PM EDT Inhaled Oxygen Concentration - - Weight 88.9 kg (196 lb) 04/15/2024 12:09 PM EDT Height 175.3 cm (5' 9 ) 04/15/2024 12:09 PM EDT Body Mass Index 28.94 04/15/2024 12:09 PM EDT Plan of Treatment Health Maintenance Due Date Last Done Comments Hepatitis B Vaccines (1 of 3 - 3-dose series) 1972 Hepatitis C Screening 1972 Depression Screening 1984 Preventative Health Evaluation 1990 Cervical Cancer Screening (Pap Smear) 1993 Colon Cancer Screening (Colonoscopy) 2017 Breast Cancer Screening (Mammogram) 2022 Shingrix-Zoster Vaccine (1 of 2) 2022 COVID-19 Vaccine (2 - season) 2024 09/23/2023 Influenza Vaccine (#1) 2024 , 06/21/2022, 09/26/2020, Additional history exists DTap / Tdap / Td (3 - Td or Tdap) 03/15/2034 03/15/2024, 01/20/2019 Pneumococcal Vaccine Aged Out 09/23/2023, 01/21/20 19 No longer eligible based on patient's age to complete this topic RSV Ped < 20 months Aged Out No longe r eligible based on patient's age to complete this topic Care Teams Cutter Apprentice Hand Relationship Specialty Start Date End Date Dianne Smith NP [address] [place] [address] PCP - General Nurse Practitioner 03/15/24
--- OUTSIDE RECORDS SUMMARY | 2024-12-22 14:12 | XMS_ITS | Encounter Summary ---
Author Organization [employer] [facility] Address [address] [place] [address] [address] [place] [address] Care Team Providers Care Operations And Intelligence Assistant Name Role Phone Dianne Smith Primary Care Provider [phone] Encounter Details Date Type Department Care Team (Late st Contact Info) Description 08/22/2022 Orders Only [facility]S [address] [place], [place] [phone] Dianne Smith ANP [address] [place] [address] Anxiety (Primary Dx) Social History Tobacco Use Types Packs/Day Years [...] Visit [facility] [address] [place] [address] Dianne Smith ANP [address] [place] [address] documented as of this encounter Visit Diagnoses Diagnosis Anxiety- Primary Anxiety state, unspecified documented in this encounter Care Teams Operations And Intelligence Assistant Relationship Specialty Start Date End Date Dianne Smith ANP [address] [place] [address] PCP - General Family Medicine 02/01/20 documented as of this encounter
--- OUTSIDE RECORDS SUMMARY | 2024-12-22 14:12 | XMS_ITS | Encounter Summary ---
Author Organization [facility] Address [address] [place] [address] [address] [address] Care Team Providers Care Customer Sales Advisor Name Role Phone Dianne Smith Primary Care Provider [phone] Reason for Visit * Reason Comments Med Refill Encounter Details Date Type Department Care Team (Late st Contact Info) Description 05/21/[address] [facility] [address] [place] [address] Dianne Smith ANP [address] [place] [address] Essential (primary) hypertension; Anxiety Social History Tobacco [...] Description 01/18/2025 11:00 AM EDT Office Visit [facility] [address] [place] [address] Dianne Smith ANP [address] [place] [address] documented as of this encounter Visit Diagnoses Diagnosis Essential (primary) hypertension Unspecified essential hypertension Anxiety Anxiety state, unspecified documented in this encounter Care Teams Customer Sales Advisor Relationship Specialty Start Date End Date Dianne Smith ANP [address] [place] [address] PCP - General Family Medicine 02/01/20 documented as of this encounter
== END 2024-12-22 12:10 | disposition home or self-care (01) ==
LOC: HO.MAMMO 12:09
PROVIDERS: PCP Family Medicine; Visit Provider Family Medicine
DX: Z12.31 Encounter for screening mammogram for malignant neoplasm of breast (principal)
CPT/HCPCS: 77063; 77067

== ENCOUNTER → 2024-12-22 12:15 | Outpatient (BNV) | payer BC, SELFPAY | PROVIDERS: PCP Family Medicine; Visit Provider Internal Medicine | DX: Z12.31 Encounter for screening mammogram for malignant neoplasm of breast (principal) | CPT/HCPCS: 77063; 77067 ==

== ENCOUNTER 2025-04-13 15:55 | Outpatient (REF) | payer BC, SELFPAY ==
--- OUTSIDE RECORDS SUMMARY | 2025-04-14 12:04 | XMS_ITS | Encounter Summary ---
Author Organization [employer] Address [address] [place] [address] [address] [place] [address] Care Team Providers Care Sales Management Intern Name Role Phone Dianne Smith Primary Care Provider [phone] Reason for Visit * Reason Comments Med Refill Encounter Details Date Type Department Care Team (Late st Contact Info) Description 03/31/[address] [facility] [address] [place], [place] [phone] Dianne Smith ANP [address] [place] [address] Anxiety Social History Tobacco Use Types Packs/Day [...] Care Team (Late st Contact Info) Description 05/30/2025 11:15 AM EDT Office Visit [facility] [address] [place] [address] Dianne Smith ANP [address] [place] [address] 06/14/2025 2:30 PM EDT Clinical Support [facility] PEDS [address] [place], [place] [phone] Eugenia Solis, RN [address] [place] [address] documented as of this encounter Visit Diagnoses Diagnosis Anxiety Anxiety state, unspecified documented in this encounter Additional Health Concerns Assessment Noted Time PHQ-9 Depression Total Score: 6 01/19/20 24 1:17 PM EDT documented as of this encounter Care Teams Sales Management Intern Relationship Specialty Start Date End Date Dianne Smith ANP [address] [place] [address] PCP - General Family Medicine 02/01/20 documented as of this encounter
--- OUTSIDE RECORDS SUMMARY | 2025-04-14 12:04 | XMS_ITS | Clinical Summary ---
Author Organization [facility] ity Address [address] [place] [phone] Care Team Providers Care Nutrition Therapist Name Role Phone Dianne Smith NP Primary Care Provider [phone] Social History Tobacco Use Types Packs/Day Years [...] season) 2024 Colorectal Cancer Screening: Colonoscopy 06/30/2024 HIV Screening 06/30/2024 Hepatitis C Screening 06/30/2024 Social Influencers of Health Screening 06/30/2024 Depression Screening 09/15/2024 Influenza Vaccine (#1) 2025 DTaP,Tdap,and Td Vaccines (2 - Td [...] age to complete this topic Care Teams Nutrition Therapist Relationship Specialty Start Date End Date Dianne Smith NP [address] [place] [phone] PCP - General 03/15/24
--- OUTSIDE RECORDS SUMMARY | 2025-04-14 12:04 | XMS_ITS ---
[facility] Results Test Name/Text Value Interpretation Date Range Source ALT SERPL CCNC 24.0 U/L Normal 04/15/2024 7 - 52 [facility] AST SERPL CCNC 21.0 U/L Normal 04/15/2024 5 - 40 [facility] ALP SERPL-CCNC 83.0 U/L Normal 04/15/2024 34 - 104 [facility] LDH SERPL L TO P CCNC 174.0 U/L Normal 04/15/2024 125 - 2 20 [facility] MAGNESIUM SERPL MCNC 1.8 mg/dL Normal 04/15/2024 1.7 - 2. 8 [facility] LIPASE [facility] 46.0 U/L Normal 04/15/2024 11 - 82 [facility] NUCLEATED RBC 0.0 % Normal 04/15/2024 0 - 1 [facility] I[facility] GRANULOCYTE, ABSOLUTE 0.03 k/uL Normal 04/15/2024 - 0.1 [facility] HGB BLD MCNC 12.6 g/dL Normal 04/15/2024 12.5 - 16 [facility] IMMATURE GRANULOCYTE, PERCENT 0.4 % Normal 04/15/2024 0 - 1 [facility] PLATELET NO. BLD AUTO 231.0 K/uL Normal 04/15/2024 150 - 450 [facility] HCT VFR BLD AUTO 37.8 % Normal 04/15/2024 37 - 47 [facility] MCHC RBC AUTO MCNC 33.3 g/dL Normal 04/15/2024 32 - 36 [facility] MONOCYTES NO. BLD AUTO 0.8 K/uL Normal 04/15/2024 0 - 0. 8 [facility] RBC NO. BLD AUTO 4.38 M/uL Normal 04/15/2024 4.2 - 5.4 [facility] WBC NO. BLD AUTO 8.1 K/uL Normal 04/15/2024 4 - 10.5 CT [facility] MCH RBC QN AUTO 28.8 pg Normal 04/15/2024 25 - 33 [facility] PMV BLD AUTO 9.5 fL Normal 04/15/2024 7.4 - 11.4 [facility] MCV RBC AUTO 86.3 fL Normal 04/15/2024 78 - 100 [facility] RDW RBC AUTO RTO 13.8 % Normal 04/15/2024 12.1 - 16.2 [facility] NEUTROPHILS NO. BLD AUTO 5.8 K/uL Normal 04/15/2024 1.8 - 7.8 [facility] BASOPHILS IN BLOOD BY AUTOMATED COUNT 0.0 K/uL Normal 04/15/2024 0 - 0.2 [facility] LYMPHOCYTES NFR BLD AUTO 16.4 % Below low normal 04/15/20 24 20 - 48 [facility] NEUTROPHILS NFR BLD AUTO 70.7 % Normal 04/15/2024 44 - 74 [facility] LYMPHOCYTES NO. BLD AUTO 1.3 K/uL Normal 04/15/2024 1 - 3.2 [facility] EOSINOPHIL NO. BLD AUTO 0.2 K/uL Normal 04/15/2024 0 - 0 .5 [facility] MONOCYTES NFR BLD AUTO 9.9 % Normal 04/15/2024 2 - 12 [facility] EOSINOPHIL NFR BLD AUTO 2.2 % Normal 04/15/2024 0 - 6 [facility] BASOPHILS NFR BLD AUTO 0.4 % Normal 04/15/2024 0 - 2 [facility] AMYLASE SERPL CCNC 23.0 U/L Below low normal 04/15/2024 29 - 103 [facility] BILIRUB SERPL MCNC 0.4 mg/dL Normal 04/15/2024 0.3 - 1 [facility] BILIRUB DIRECT SERPL MCNC 0.1 mg/dL Normal 04/15/2024 0 - 0.2 [facility] CREAT SERPL MCNC 0.7 mg/dL Normal 04/15/2024 0.5 - 1 [facility] ANION GAP SERPL SCNC 9.0 mmol/L Normal 04/15/2024 5 - 14 [facility] CALCIUM SERPL MCNC 8.5 mg/dL Normal 04/15/2024 8.4 - 10.2 [facility] SODIUM SERPL SCNC 133.0 mmol/L Below low normal 04/15/2024 1 35 - 145 [facility] CHLORIDE SERPL SCNC 97.0 mmol/L Below low normal 04/15/2024 98 - 107 [facility] BUN SERPL [facility] 13.0 mg/dL Normal 04/15/2024 7 - 17 [facility] HCO3 SER SCNC 27.0 mmol/L Normal 04/15/2024 24 - 32 [facility] Glomerular filtration rate/1.73 sq M. predicted 105.0 Normal 04/15/2024 60 - [facility] GLUCOSE SERPL MCNC 180.0 mg/dL Normal 04/15/2024 70 - 199 [facility] POTASSIUM SERPL SCNC 3.6 mmol/L Normal 04/15/2024 3.5 - 5 .1 [facility] History of Medication Use Medication Directions Dispensed Refills Start Date End Date Stat us azithromycin (ZITHROMAX) 500 MG tablet Take 1 tablet (500 mg total) by mouth daily for 5 days. 04/15/2024 04/21/2024 active Allergies Allergen Reaction Severity Comment Documented Date Source Statu s PENICILLINS 04/15/2024 [facility] active MORPHINE [facility] Problems Problem Status Onset Date Problem Type Date of Resoluti on Source Uterine fibroid active EncounterDiagnosisAct [facility] Colitis active EncounterDiagnosisAct [facility] Immunizations Vaccine Date Source Lot Number Status Tdap 03/15/2024 [facility] [id number] completed Encounters Encounter Type Encounter Reason Primary Diagnosis Location Date Ambulatory Nausea with vomiting Nausea with vomiting [facility] 07/14/2024 Emergency Noninfective gastroenteritis and colitis, unspecified Noninfective gastroenteritis and colitis, unspecified [facility] 04/15/2024 Emergency Unspecified open wou nd of unspecified finger without damage to nail, initial encounter Unspecified open wound of unspecified finger without damage to nail, initial encounter [facility] 03/15/2024 Care Team Organization Name Specialty Phone Email Start Date End Da te [facility] 07/15/2024 [facility] 202303/29/2025 [facility] 03/16/2024 [facility]ISCO [facility]ME[facility] 03/16/20 24
--- OUTSIDE RECORDS SUMMARY | 2025-04-14 12:05 | XMS_ITS | Clinical Summary ---
Author Organization [facility] Address [address] [place] [address] Care Team Providers Care Data Programmer Name Role Phone Dianne Smith NP Primary Care Provider [phone] Allergies Active Allergy Reactions Criticality Noted Date [...] 84 04/15/2024 3:23 PM EDT Temperature 37.3 C (99.1 F) 04/15/2024 12:09 PM EDT Respiratory Rate 18 04/15/2024 3:23 PM EDT [...] - season) 2024 09/23/2023 Influenza Vaccine (#1) 2025 , 06/21/2022, 09/26/2020, Additional history exists DTap / Tdap / Td (3 - Td or Tdap) 03/15/2034 03/15/2024, 01/20/2019 Pneumococcal Vaccine Aged Out 09/23/2023, 01/21/20 19 No longer eligible based on patient's age to complete this topic RSV Ped < 20 months Aged Out No longe r eligible based on patient's age to complete this topic Care Teams Data Programmer Relationship Specialty Start Date End Date Dianne Smith NP [address] [place] [phone] PCP - General Nurse Practitioner 03/15/24
== END 2025-04-13 15:56 | disposition home or self-care (01) ==
LOC: HO.HHCLNP 15:55
PROVIDERS: Visit Provider Internal Medicine
DX: M54.50 Low back pain, unspecified (principal); G89.29 Other chronic pain
CPT/HCPCS: 87086

== ENCOUNTER 2025-06-29 10:05 | Outpatient (REF) | payer BC, SELFPAY ==
--- OUTSIDE RECORDS SUMMARY | 2025-06-28 11:00 | XMS_ITS | Encounter Summary ---
Author Organization [employer] Address [address] [place] [address] 7 [place] [address] Care Team Providers Care Clinical Statistical Programmer Name Role Phone Francisco Almeida Primary Care Provider [phone] Reason for Visit * Reason Comments Follow-up Encounter Details Date Type Department Care Team ([facility] st Contact Info) Description 06/28/2025 11:00 AM EDT Office Visit [facility] [address], [place] [phone] Francisco Almeida ANP [address] [place], [place] [phone] Hypertension associated with diabetes (HCC) (Primary Dx); Hypertension complicating diabetes (HCC); Tobacco dependence; Fatigue, unspecified type; Pain in both hands; Polyarthralgia Social History Tobacco Use Types Packs/Day Years Used Date Smoking Tobacco: Every Day Cigarettes Passive Smoke Exposure: Current Smokeless Tobacco: Never Tobacco Cessation:Ready to Q uit: Not Asked; Counseling Given: Not Answered Depression Answer Date Recorded Patient Health Questionnaire-9 Score 14 06/14/2025 Patient Health Questionnaire-9 Score 14 06/14/2025 Last PHQ-9: Questionnaire Data Not on file 0 06/14/2025 Housing Stability Answer Date Recorded What is your housing situation today? I have estiven rascon 01/18/[address] you li ve. Do you have problems with any of the following? None of the above 01/18/2025 Food Insecurity Answer Date Recorded Within the past 12 months, y ou worried that your food would run out before you got money to buy more: Never True 01/18/2025 Within the past 12 months,th e food you bought just didn't last and you didn't have enough money to get more: Never True 02/2025 Transportation Answer Date Recorded In the past 12 months, has l ack of transportation kept you from medical appts, meetings, work or from getting things needed for daily living? No 01/18/2025 Utilities Answer Date Recorded In the past 12 months, has t he electric, gas, oil or water company threatened to shut off services in your home? No 01/18/2025 Depression Answer Date Recorded Patient Health Questionnaire-2 Score 6 06/14/2025 Internet Access Answer Date Recorded Internet Access Q1 Yes 05/17/2024 Internet Access Q2 Not on file 05/17/2024 Comments Unknown Sex and Gender Information Value Date Recorded Sex Assigned at Female 07/15/2022 10:32 AM EDT Legal Sex Female 10:32 AM EDT Gender Identity Female 07/15/2022 10:32 AM EDT Sexual Orientation Lesbian or [place] 07/15/2022 10 :32 AM EDT documented as of this encounter Last Filed Vital Signs Vital Sign Reading Time Taken Comments Blood Pressure 110/70 06/28/2025 11:10 AM EDT Pulse 92 06/28/2025 11:10 AM EDT Temperature 36.3 C (97.4 F) 06/28/2025 11:10 AM EDT Respiratory Rate 15 06/28/2025 11:10 AM EDT Oxygen Saturation 96% 06/28/2025 11:10 AM EDT Inhaled Oxygen Concentration - - Weight 85.8 kg (189 lb 4 oz) 06/28/2025 11:10 AM EDT Height 175.3 cm (5' 9 ) 06/28/2025 11:10 AM EDT Body Mass Index 27.95 06/28/2025 11:10 AM EDT documented in this encounter Progress Notes * JOSESITO Blount - 06/28/2025 11:00 AM EDT SUBJECTIVE: Cece Fernandez is a 54 y.o. year old female who presents for chronic disease management. PMH T2DM w/ hypertension, chronic sinusitis, uterine fibroid, R sided sciatica Acute Concerns: DM: stopped taking ozempic for a few mos, resumed last mo. Denies abdominal pain, nausea. Did have an episode of hypoglycemia, woke up w/ excessive sweating, mainly on head, took shower, checked BG and was in 40's. After drinking juice symptoms resolved with subsequent increase in blood sugar. No re currence since initial episode. She is having polyarthralgia, frequent HERRERA, hand locking Lab Results Component Value Date HGBA1C 6.7 (A) 06/28/2025 HGBA1C 5.8 01/18/2025 HGBA1C 6.0 10/11/2024 HGBA1C 7.6 (A) 07/19/2024 Back Pain - Ongoing follow-up with specialist in [place] for back pain - Currently attending physical therapy - Difficulty standing and getting up after long trips - Limping reported prior to visit, has resolved - wonders if she has fibromyalgia, has pain in hands too. Headaches - Headaches reported prior to visit - Occur in context of working nights - Going to bed early and waking up early - Denies fatigue - Possible association with dehydration and stress Hand Symptoms - Occasional bilateral wrist pain and hand/fingers locking, sometimes w/ numbness. Does have h/o carpal tunnel syndrome Gynecologic History - Pelvic exam with biopsy performed in September or October 2024 at [facility], per pt result was normal. Has h/o fibroids. Will request records from [facility]. 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 Social History Social History Narrative Not on file Problem List[1] Surgical History[2] Family History[3] Review of Systems Constitutional: Negative for chills and fever. HENT: Negative for congestion and sore throat. Eyes: Negative for visual disturbance. Respiratory: Negative for cough and shortness of breath. Cardiovascular: Negative for chest pain. Gastrointestinal: Negative for constipation and diarrhea. Endocrine: Negative for polydipsia, polyphagia and polyuria. Genitourinary: Negative for dysuria. Musculoskeletal: Positive for arthralgias, back pain and gait problem. Negative for joint swelling. Neurological: Positive for numbness and headaches. Negative for dizziness, weakness and light-headedness. OBJECTIVE: Vitals: 06/28/25 1110 BP: 110/70 BP Location: Left arm Patient Position: Sitting BP Cuff Size: Adult Pulse: 92 Resp: 15 Temp: 97.4 ??F (36.3 ??C) TempSrc: Oral SpO2: 96% Weight: 189 lb 4 oz (85.8 kg) Height: 5' 9 (1.753 m) Physical Exam Vitals reviewed. Constitutional: General: She is not in acute distress. Appearance: Normal appearance. She is not ill-appearing. HENT: Head: Normocephalic and atraumatic. Nose: No congestion. Eyes: General: No scleral icterus. Extraocular Movements: Extraocular movements intact. Pupils: Pupils are equal, round, and reactive to light. Cardiovascular: Rate and Rhythm: Normal rate and regular rhythm. Pulmonary: Effort: Pulmonary effort is normal. No accessory muscle usage or respiratory distress. Musculoskeletal: Right lower leg: No edema. Left lower leg: No edema. Comments: Machine Puller strength symmetric 4/5 bilaterally Neurological: Mental Status: She is alert and oriented to person, place, and time. Psychiatric: Mood and Affect: Mood normal. Behavior: Behavior normal. ASSESSMENT/PLAN Cece was seen today for follow-up. Diagnoses and all orders for this visit: Will request records from [facility], pt reports pap and biopsy in Sep/Oct 2024 Hypertension associated with diabetes (HCC) (Primary) A1c has increased. Remains at goal and pt recently resumed ozempic. Cannot tolerate metformin d/t vomiting If hypoglycemia occurs, notify clinic Not on statin, ASA, yes ARB Update lipids/CMP/urine alb Self refer for eye exam Foot exam at follow-up Cont losartan-hydrochlorothiazide 50-12.5 BP at/near goal today, </= 130/80. Continue to encourage low salt [...] NOTE 06/21/2022 No results found for: MICROALBCREU - Lipid Panel, Standard; Future - Comprehensive Metabolic Panel; Future - Albumin, Random Urine W/Creatinine; Future Hypertension complicating diabetes (HCC) As above - POCT Glucose - POCT Hgb A1c Tobacco dependence Smoking cessation encouraged Fatigue, unspecified type Labs as below Cont to recommend stress reduction, optimize sleep sched, cont PT - TSH W/Reflex to FT4; Future - CBC auto differential; Future - Vitamin B12; Future Pain in both hands - XR Hand 3+ Views Left; Future - XR Hand 3+ Views Right; Future Polyarthralgia - Vitamin D, 25-Hydroxy, Total, Immunoassay; Future This note was drafted using Ambient (AI) technology. The patient/patient's guardian has been informed and has consented to the use of this technology: Yes Based on our discussion, I have outlined the following instructions for you: - Get the laboratory tests done, including thyroid function, and keep track of your results. You have a follow-up visit scheduled in 6 to 8 weeks. - Get an X-ray of your hand and keep doing your physical therapy. - Drink more water, update your eyeglasses prescription, and call your eye doctor for a check-up. Next appointment(s): - Follow-up appointment in 6 to 8 weeks - Hand X-ray appointment - Eye doctor appointment Thank you again for your visit, and we look forward to supporting you in your journey to better health. Follow Up: 6-8 weeks STF DM (foot exam), multiple concerns Medications Ordered Prior to Encounter[4] [1] Patient Active Problem List Diagnosis Hypertension associated with diabetes (HCC) Prediabetes Recurrent major depression (CMS/HCC) Hemoptysis Anxiety Subacute sinusitis Tobacco dependence Overweight Acute upper respiratory infection New onset type 2 diabetes mellitus (HCC) Screening for malignant neoplasm of colon Flu-like symptoms Bronchitis Other social stressor [2] History reviewed. No pertinent surgical history. [3] No family history on file. [4] Current Outpatient Medications on File Prior to Visit Medication Sig Dispense Refill acetaminophen (Tylenol) 500 MG tablet Take 2 tablets (1,000 mg) by mouth every 6 (six) hours if needed for moderate pain or fever for up to 25 doses. 40 tablet 0 albuterol 108 (90 Base) MCG/ACT inhaler INHALE 2 PUFFS BY MOUTH EVERY 4 HOURS NEEDED FOR WHEEZING OR SHORTNESS OF BREATH 18 g 1 Alcohol Swabs pads 1 each if needed (to clean skin). 100 each 11 Blood Glucose Monitoring Suppl (FreeStyle [place] Lite) w/Device kit Use to test blood sugar 2 times daily 1 kit 0 cetirizine (ZyrTEC) 10 MG tablet Take 1 tablet (10 mg) by mouth in the morning. 30 tablet 5 clonazePAM (KlonoPIN) 0.5 MG tablet Take 1 tablet (0.5 mg) by mouth if needed in the morning and atbedtime for anxiety. Do not start before April 28, 2025. 60 tablet 1 cyclobenzaprine (Flexeril) 5 MG tablet Take 1 tablet (5 mg) by mouth if needed at bedtime for muscle spasms for up to 10 days. 10 tablet 0 diphenhydrAMINE (BENADryl) 25 MG tablet Take 1 tab po at bedtime prn congestion, no more than 5 days -mohawk 5 tablet 0 fluticasone (Flonase) 50 MCG/ACT nasal spray Administer 1 spray into each nostril Once per day. 16 g 2 FREESTYLE LITE test strip Use to test blood sugar 2 times daily 100 each 12 ibuprofen 400 MG tablet Take 1 tablet (400 mg) by mouth every 6 (six) hours if needed for moderate pain or fever for up to 30 doses. 30 tablet 0 Lancets misc Use to test blood sugar 2 times daily 100 each 11 losartan-hydroCHLOROthiazide (Hyzaar) 50-12.5 MG tablet TAKE 1 TABLET BY MOUTH EVERY MORNING 90 tablet 2 metoprolol succinate XL (Toprol-XL) 100 MG 24 hr tablet TAKE 1 TABLET BY MOUTH EVERY DAY 90 tablet 2 naproxen sodium (Aleve) 220 MG tablet Take 1 tablet (220 mg) by mouth every 12 (twelve) hours if needed for mild pain. 60 tablet 1 nicotine (Nicoderm CQ) 14 MG/24HR patch Place 1 patch on the skin 1 (one) time each day at the sametime. 30 patch 0 nicotine polacrilex (Nicorette) 2 MG gum Chew 1 each (2 mg) if needed for smoking cessation. Every 1-2 hours as needed in place of cigarette 100 each 11 pantoprazole (ProtoNix) 40 MG EC tablet TAKE 1 TABLET BY MOUTH EVERY DAY BEFORE BREAKFAST, DO NOT BREAK, CRUSH, DISSOLVE OR CHEW 90 tablet 1 semaglutide (Ozempic) 2 MG/1.5ML solution pen-injector Take 0.25mg once weekly subcutaneously for 4weeks, then 0.5mg once weekly 1 each 12 Spacer/Aero-Holding Chambers (OptiChamber Sonia) misc 1 each every 4 (four) hours if needed (asthma). 1 each 0 varenicline (Chantix) 0.5 MG tablet Take 0.5 mg PO once daily on Days 1 through 3, then 0.5 mg PO twice daily on Days 4 through 7, then start 1mg twice daily prescription; take with full glass of water 11 tablet 0 varenicline (Chantix) 1 MG tablet Take 1 tablet (1 mg) by mouth 2 times daily. Take with full glassof water. Start after initial 7d rx. 60 tablet 2 No current facility-administered medications on file prior to visit. documented in this encounter Plan of Treatment Upcoming Encounters Date Type Department Care Team (Late st Contact Info) Description 08/25/2025 2:30 PM EST Office Visit [facility] [address] [place] [address] Francisco Almeida ANP [address] [place] [address] 09/19/2025 2:00 PM EST Telemedicine [facility] [address] [place] [address] Eugenia Solis, RN [address] [place] [address] Scheduled Orders Name Type Priority Associated Diagnoses Orde r Schedule Lipid Panel, Standard Lab Routine Hypertension associated with diabetes (HCC) Expected: 06/28/2025 (Approximate), Expires: 06/28/2026 Comprehensive Metabolic Panel Lab Routine Hypertension associated with diabetes (HCC) Expected: 06/28/2025 (Approximate), Expires: 06/28/2026 TSH W/Reflex to FT4 Lab Routine Fatigue, unspecified type Expected: 06/28/2025 (Approximate), Expires: 06/28/2026 XR Hand 3+ Views Left Imaging Routine Pain in both hands Expected: 06/28/2025, Expires: 06/28/2026 Vitamin B12 Lab Routine Fatigue, unspecified type Expected: 06/28/2025 (Approximate), Expires: 06/28/2026 Vitamin D, 25-Hydroxy, Total, Immunoassay Lab Routine Polyarthralgia Expected: 06/28/2025 (Approximate), Expires: 06/28/2026 documented as of this encounter Procedures Procedure Name Priority Date/Time Associated Diagnosis Comments XR HAND 3+ VIEWS BILATERAL Routine 06/29/2025 10:44 AM EDT ALBUMIN, RANDOM URINE W/CREATININE Routine 06/29/2025 10:12 AM EDT Hypertension associated with diabetes (HCC) CBC WITH AUTO DIFFERENTIAL Routine 06/29/2025 10:12 AM EDT Fatigue, unspecified type POCT GLYCATED HEMOGLOBIN, TOTAL Routine 06/28/2025 11:24 AM EDT Hypertension complicating diabetes (HCC) POCT GLUCOSE Routine 06/28/2025 11:18 AM EDT Hypertension complicating diabetes (HCC) documented in this encounter Results * XR Hand 3+Views Bilateral (06/29/2025 10:44 AM EDT) Anatomical Region Laterality Modality Upper Extremities, Hand Bilateral Radiogra phic Imaging 06/29/2025 10:4 4 AM EDT Narrative 06/29/2025 11:08 [place] [address] XRay Report Signed Patient: Stacey Shaw MR# : [id number] : 1970 Acct:[id number] Age/Sex: 54 / F ADM Date: 06/29/25 Loc: HO.HHCX Attending Dr: Francisco Almeida NP Ordering Physician: FRANCISCO ALMEIDA NP Date of Service: 06/29/25 Procedure(s): XR Hand Bilat min 3v Accession Number(s): [id number] cc: FRANCISCO ALMEIDA NP Reason for Exam: bilateral hand pain/locking EXAMINATION: X-ray bilateral hands CLINICAL INFORMATION: Bilateral hand pain and locking COMPARISON: None TECHNIQUE: Bilateral hands each 3 views FINDINGS: Left hand: Osseous mineralization is normal. No fracture or dislocation. No suspicious osseous lesion. No significant joint space narrowing or marginal osteophytes. No osseous erosion. No abnormal soft tissue calcification. Right hand: Osseous mineralization is normal. No fracture or dislocation. No suspicious bony lesion. No significant joint space narrowing or marginal osteophytes. No osseous erosion. No abnormal soft tissue calcification. XR/XR Hand Bilat min 3v IMPRESSION: No acute osseous findings Electronically signed by: Matthias Ontiveros MD 06/29/2025 11:05 AM EDT RP Dictated By: Matthias Ontiveros MD Signed By: <Electronically signed by Matthias Ontiveros MD in OV> 06/29/25 1105 DD/ 1044 TD/TT: 06/29/25 1050 Door Liner: ENA Procedure Note Donotuseinterpreter, Image - 06/29/[address] [address] XRay Report Signed Patient: Stacey ShawMR# : [id number] : 1970Acct:[id number] Age/Sex: 54 / FADM Date: 06/29/25 Loc: HO.HHCX Attending Dr: Francisco Almeida NP Ordering Physician: FRANCISCO ALMEIDA NP Date of Service: 06/29/25 Procedure(s): XR Hand Bilat min 3v Accession Number(s): [id number] cc: FRANCISCO ALMEIDA NP Reason for Exam: bilateral hand pain/locking EXAMINATION: X-ray bilateral hands CLINICAL INFORMATION: Bilateral hand pain and locking COMPARISON: None TECHNIQUE: Bilateral hands each 3 views FINDINGS: Left hand: Osseous mineralization is normal. No fracture or dislocation. No suspicious osseous lesion. No significant joint space narrowing or marginal osteophytes. No osseous erosion. No abnormal soft tissue calcification. Right hand: Osseous mineralization is normal. No fracture or dislocation. No suspicious bony lesion. No significant joint space narrowing or marginal osteophytes. No osseous erosion. No abnormal soft tissue calcification. XR/XR Hand Bilat min 3v IMPRESSION: No acute osseous findings Electronically signed by: Matthias Ontiveros MD 06/29/2025 11:05 AM EDT RP Dictated By: Matthias Ontiveros MD Signed By: <Electronically signed by Matthias Ontiveros MD in OV> 06/29/25 1105 DD/ 1044 TD/TT: 06/29/25 1050 Door Liner: HB us Francisco Almeida ANP IMG XR PROCEDURES Final Result * CBC auto differential (06/29/2025 10:12 AM EDT) White Blood Count 8.0 4.8 - 10.8 X10*3/uL [facility] Red Blood Count 4.90 4.20 - 5.50 X10*6/uL [facility] Hemoglobin 14.4 12.0 - 16.0 g/dl [facility] Hematocrit 42.6 37.0 - 47.0 % [facility] Mean Corpuscular Volume 86.9 80.0 - 98.0 fL [facility] Mean Corpuscular Hemoglobin 29.4 27.0 - 33.0 pg [facility] Mean Corpuscular HGB Conc 33.8 31.0 - 35.0 g/dl [facility] Red Cell Distribution Width 14.2 11.0 - 16.0 % [facility] Platelet Count 281 160 - 400 X10*3/uL [facility] Mean Platelet Volume 10.4 9.4 - 12.3 fL [facility] Neutrophils Percent Auto 63.4 45 - 73 % [facility] Imm Gran Pct Auto 0.4 0.0 - 0.4 % [facility] Lymphocytes Percent Auto 23.1 20 - 40 % [facility] Monocytes Percent Auto 10.2 2 - 11 % [facility] Eosinophils Percent Auto 2.3 0 - 4 % [facility] Basophils Percent Auto 0.6 0 - 2 % [facility] NRBC Pct Auto 0.0 0.0 - 0.2 /100WBC [facility] Neutrophils Absolute Auto 5.1 2.0 - 8.3 x10*3/uL [facility] Imm Gran Abs Auto 0.03 0.00 - 0.03 X10*3/uL [facility] Lymphocytes Absolute Auto 1.8 1.2 - 4.9 X10*3/uL [facility] Monocytes Absolute Auto 0.8 0.1 - 1.2 X10*3/uL [facility] Eosinophils Absolute Auto 0.2 0.0 - 0.4 X10*3/uL [facility] Basophils Absolute Auto 0.1 0.0 - 0.2 X10*3/uL [facility] NRBC Abs Auto 0.000 0.0 - 0.012 X10*3/uL [facility] Blood Venous blood specimen / Unknown 06/29/2025 10:12 AM EDT 06/29/2025 11:18 AM EDT Francisco Almeida ANP LAB BLOOD ORDERABLES Final Resul t Performing Organization Address [facility] de Phone Number [facility] [address] [place] [phone] * Albumin, Random Urine W/Creatinine (06/29/2025 10:12 AM EDT) Creatinine, Urine 167.81 mg/dL [facility] Microalbumin Urine 8.0 mg/L [facility] Microalbum Creatinine Ratio Ur 4.7 <30 ug/mg cr [facility] Comment:Albumin/Creatinine R atio Reference Ranges: Normal: < 30 ug/mg creatinine Microalbuminuria: 30 - 300 ug/mg creatinineClinical Albuminuria: > 300 ug/mg creatinine Urine (Urine, Random) 06/29/2025 10:12 AM EDT 06/29/2025 11:04 AM EDT us Francisco Almeida ANP LAB URINE ORDERABLES Final Resul t Performing Organization Address [facility] Co de Phone Number [facility] [address] [place] [phone] * (ABNORMAL) POCT Hgb A1c (06/28/2025 11:24 AM EDT) Hemoglobin A1C 6.7(A) 4.0 - 5.7 % QC Media Lot # [id number] Lot# Expiration Date ,027 Blood 06/28/2025 11:2 4 AM EDT us Francisco BELLAMY POINT OF CARE TEST ENTER/EDIT OR DERABLES Final Result * POCT Glucose (06/28/2025 11:18 AM EDT) Glucose Blood, POC 96 60 - 200 mg/dL QC Media Lot # [id number] Lot# Expiration Date 2816,026 Blood Capillary blood specimen / Unknown 06/28/2025 11:18 AM EDT us Francisco BELLAMY POINT OF CARE TEST ENTER/EDIT OR DERABLES Final Result documented in this encounter Visit Diagnoses Diagnosis Hypertension associated with diabetes (HCC)- Primary Unspecified essential hypertension Hypertension complicating diabetes (HCC) Tobacco dependence Tobacco use disorder Fatigue, unspecified type Pain in both hands Polyarthralgia Pain in joint, multiple sites documented in this encounter Additional Health Concerns Assessment Noted Time PHQ-9 Depression Total Score: 14 06/14/2 025 12:17 PM EDT documented as of this encounter Care Teams Clinical Statistical Programmer Relationship Specialty Start Date End Date Francisco Almeida ANP [address] [place] [phone] PCP - General Family Medicine 02/01/20 documented as of this encounter
--- NOTE | ~2025-06-29 | XR_ITS ---
EXAMINATION: X-ray bilateral hands CLINICAL INFORMATION: Bilateral hand pain and locking COMPARISON: None TECHNIQUE: Bilateral hands each 3 views FINDINGS: Left hand: Osseous mineralization is normal. No fracture or dislocation. No suspicious osseous lesion. No significant joint space narrowing or marginal osteophytes. No osseous erosion. No abnormal soft tissue calcification. Right hand: Osseous mineralization is normal. No fracture or dislocation. No suspicious bony lesion. No significant joint space narrowing or marginal osteophytes. No osseous erosion. No abnormal soft tissue calcification. XR/XR Hand Bilat min 3v IMPRESSION: No acute osseous findings Electronically signed by: Matthias Ontiveros MD 06/29/2025 11:05 AM EDT
[2025-06-29 11:21] LABS: MANUAL DIFF FLAG NO
[2025-06-29 11:29] LABS: Hematocrit 42.6 % (37.0-47.0); Hemoglobin 14.4 g/dl (12.0-16.0); Imm Gran Abs Auto 0.03 X10*3/uL (0.00-0.03); Imm Gran Pct Auto 0.4 % (0.0-0.4); Lymphocytes Absolute Auto 1.8 X10*3/uL (1.2-4.9); Mean Corpuscular HGB Conc 33.8 g/dl (31.0-35.0); Mean Corpuscular Hemoglobin 29.4 pg (27.0-33.0); Mean Corpuscular Volume 86.9 fL (80.0-98.0); NRBC Abs Auto 0.000 X10*3/uL (0.0-0.012); NRBC Pct Auto 0.0 /100WBC (0.0-0.2); Platelet Count 281 X10*3/uL (160-400); Red Blood Count 4.90 X10*6/uL (4.20-5.50); White Blood Count 8.0 X10*3/uL (4.8-10.8)
[2025-06-29 11:53] LABS: Microalbum/Creatinine Ratio Ur 4.7 ug/mg cr (<30)
--- OUTSIDE RECORDS SUMMARY | 2025-06-29 11:53 | XMS_ITS | Encounter Summary ---
Author Organization [employer] Address [address] [place] [address] [address] [place] [address] Care Team Providers Care Pharmacy Assistant Name Role Phone Dianne Smith Primary Care Provider [phone] Reason for Visit * Reason Comments Med Refill Encounter Details Date Type Department Care Team (Late st Contact Info) Description 12/25/2023 Refill [facility] [address] [place] [address] Dianne Smith ANP [address] [place] [address] Anxiety Social History Tobacco Use Types Packs/Day [...] Description 08/25/2025 2:30 PM EST Office Visit [facility] [address] [place] [address] Dianne Smith ANP [address] [place] [address] 09/19/2025 2:00 PM EST Telemedicine [facility] [address] [place] [address] Eugenia Solis, RN [address] [place] [address] documented as of this encounter Visit Diagnoses Diagnosis Anxiety Anxiety state, unspecified documented in this encounter Care Teams Pharmacy Assistant Relationship Specialty Start Date End Date Dianne Smith ANP [address] [place] [address] PCP - General Family Medicine 02/01/20 documented as of this encounter
--- OUTSIDE RECORDS SUMMARY | 2025-06-29 11:53 | XMS_ITS | Encounter Summary ---
Author Organization [employer] Address [address] [place] [address] [address] [place] [address] Care Team Providers Care Associate Professor Of Library Media Name Role Phone Dianne Smith Primary Care Provider [phone] Encounter Details Date Type Department Care Team (Late st Contact Info) Description 02/11/[address] [facility] [address] [place] [address] Smitha Beck LPN Social History Tobacco Use [...] Description 08/25/2025 2:30 PM EST [address] [facility] [address] [place] [address] Dianne Smith ANP [address] [place] [address] 09/19/2025 2:[address] [facility] [address] [place] [address] Eugenia Solis, SHIRAZ [address] [place] [address] documented as of this encounter Visit Diagnoses Not on filedocumented in this encounter Care Teams Associate Professor Of Library Media Relationship Specialty Start Date End Date Dianne Smith ANP [address] [place] [address] PCP - General Family Medicine 02/01/20 documented as of this encounter
--- OUTSIDE RECORDS SUMMARY | 2025-06-29 11:53 | XMS_ITS | Encounter Summary ---
Author Organization [employer] Address [address] [place] [address] 7 [place] [address] Care Team Providers Care Top Printing Press Operator Name Role Phone Dianne Smith Primary Care Provider [phone] Reason for Visit * Reason Comments Med Refill Encounter Details Date Type Department Care Team ([facility] st Contact Info) Description 03/31/2024 Refill [facility] MEDICINE [address] [place], [place] [phone] Dianne Smith ANP [address] [place], [place] [phone] Anxiety Social History Tobacco Use Types Packs/Day [...] Description 08/25/2025 2:30 PM EST Office Visit [facility] MEDICINE [address] [place] [address] Dianne Smith ANP [address] [place] [address] 09/19/2025 2:00 PM EST Telemedicine [facility] MED & PEDS [address] [place], [place] [phone] Eugenia Solis, RN [address] [place] [address] documented as of this encounter Visit Diagnoses Diagnosis Anxiety Anxiety state, unspecified documented in this encounter Additional Health Concerns Assessment Noted Time PHQ-9 Depression Total Score: 6 01/19/20 24 1:17 PM EDT documented as of this encounter Care Teams Top Printing Press Operator Relationship Specialty Start Date End Date Dianne Smith ANP [address] [place] [address] PCP - General Family Medicine 02/01/20 documented as of this encounter
--- OUTSIDE RECORDS SUMMARY | 2025-06-29 11:53 | XMS_ITS | Encounter Summary ---
Author Organization [employer] Address [address] [place] [address] 7 [place] [address] Care Team Providers Care Bottom Brusher Name Role Phone Dianne Smith Primary Care Provider [phone] Reason for Visit * Reason Onset Date Comments Appointment Request 11/21/2023 Encounter Details Date Type Department Care Team (Late st Contact Info) Description 11/21/2023 Telephone [facility] MEDICINE [address] [place] [address] Dianne Smith ANP [address] [place], [place] [phone] Appointment Request Social History Tobacco Use Types Packs/Day Years Used Date Smoking Tobacco: Every Day Cigarettes Passive Smoke Exposure: Current Smokeless Tobacco: Never Comments Unknown Sex and Gender Information Value Date Recorded Sex Assigned at Female 07/15/2022 10:32 AM EDT Legal Sex Female 10:32 AM EDT Gender Identity Female 07/15/2022 10:32 AM EDT Sexual Orientation Lesbian or [place] 07/15/2022 10 :32 AM EDT documented as [...] Description 08/25/2025 2:30 PM EST Office Visit [facility] MEDICINE [address] [place] [address] Dianne Smith ANP [address] [place] [address] 09/19/2025 2:00 PM EST Telemedicine [facility] MED [facility] PEDS [address] [place] [address] Eugenia Solis, RN [address] [place] [address] documented as of this encounter Visit Diagnoses Not on filedocumented in this encounter Care Teams Bottom Brusher Relationship Specialty Start Date End Date Dianne Smith ANP [address] [place] [address] PCP - General Family Medicine 02/01/20 documented as of this encounter
--- OUTSIDE RECORDS SUMMARY | 2025-06-29 11:53 | XMS_ITS | Encounter Summary ---
Author Organization [employer] Address [address] [place] [address] 7 [place] [address] Care Team Providers Care Softlines Supervisor Name Role Phone Dianne Smith Primary Care Provider [phone] Encounter Details Date Type Department Care Team (Late st Contact Info) Description 11/11/2022 Orders Only [facility] MED & PEDS [address] [place] [address] Smitha Beck LPN Social History Tobacco Use [...] Description 08/25/2025 2:30 PM EST Office Visit [facility] MEDICINE [address] [place] [address] Dianne Smith ANP [address] [place] [address] 09/19/2025 2:00 PM EST Telemedicine [facility] CH[facility] MED & PEDS [address] [place] [address] Eugenia Solis, SHIRAZ [address] [place] [address] documented as of this encounter Visit Diagnoses Not on filedocumented in this encounter Care Teams Softlines Supervisor Relationship Specialty Start Date End Date Dianne Smith ANP [address] [place] [address] PCP - General Family Medicine 02/01/20 documented as of this encounter
--- OUTSIDE RECORDS SUMMARY | 2025-06-29 11:53 | XMS_ITS | Clinical Summary ---
Author Organization [facility] Address [address] [place] [address] Care Team Providers Care Electricity Trader Name Role Phone Rios Brower APRN Primary Care Provid er Active Problems No known active problems Encounters Date Type Department Care Team Description 06/21/2025 10:30 AM EDT Treatment [facility] [address] [place] [phone] System, Provider Not In Martha Sanchezina, PT Lumbar pain (Primary Dx); Pain in both lower extremities 06/21/2025 Travel 06/08/2025 2:30 PM EDT Treatment [facility] [address] [place] [phone] System, Provider Not In Rios Contreras MD Murphy, Anabella, PT Lumbar pain (Primary Dx); Pain in both lower extremities 06/08/2025 Travel 06/01/2025 2:00 PM EDT Treatment [facility] [address] [place] [phone] System, Provider Not In Sanchez, Anabella, PT Lumbar pain (Primary Dx); Pain in both lower extremities 06/01/2025 Travel 05/23/2025 1:30 PM EDT Treatment [facility] [address] [place] [phone] System, Provider Not In Sanchez, Anabella, PT Lumbar pain (Primary Dx); Pain in both lower extremities 05/23/2025 Travel 05/13/2025 1:30 PM EDT Evaluation [facility] [address] [place] [phone] Rios Contreras MD System, Provider Not In Anabella Sanchez, PT Lumbar pain (Primary Dx); Pain in both lower extremities 05/13/2025 Travel 04/19/2025 Transcribe Orders [facility] [address] [place] [phone] Rios Browerb, MIDLEVEL PROVIDER Lumbar radiculopathy (Primary Dx) 04/19/2025 Transcribe Orders [address] [phone] Rios Brower Feliciano, MIDLEVEL PROVIDER Lumbar radiculopathy (Primary Dx) from Last 3 Months Social History Tobacco Use Types Packs/Day Years Used Date Smoking Tobacco: Unknown Tobacco Cessation:Counseling Given: Not Answered Comments Unknown Sex and Gender Information Value Date Recorded Sex Assigned at Not on file Legal Sex Female 2:06 PM EDT Gender Identity Not on file Sexual Orientation Not on file Plan of Treatment Upcoming Encounters Date Type Department Care Team (Late st Contact Info) Description 07/07/2025 9:30 AM EDT Treatment [facility] [address] [place] [phone] System, Provider Not In Anabella Sanchez, CHALINO [address] [place] [address] Health Maintenance Due Date Last Done Comments Hepatitis C Virus Screening 1972 HIV Screening 1985 DTaP/Tdap/Td Vaccines (1 - Tdap) 1991 Hepatitis B Vaccines (1 of 3 - 19+ 3-dose series) 1991 Pneumococcal Vaccines 50+ (1 of 2 - PCV) 1991 Pap Smear (Ages 21-65) 1993 Mammogram 2012 Colonoscopy 2017 Zoster (Shingles) Vaccine (1 of 2) 2022 Influenza Vaccine 04/15/2025 06/05/2024 COVID-19 Vaccine (3 - 2024- season) 2025, 01/30/2021 Goals Goal Patient Goal Type Associated Problems Recent Progress Patient-Stated? Author PT Goals Physical Therapy No Messer-Destiny Nice, STUDENT Note: Patient will be independent with HEP within 2 weeks. Patient will be able to demonstrate proper bending and lifting posture for lifting at work within 4 weeks. Patient will improve lumbar ROM in flexion and extension by 15 degrees to improve movement patterns during functional activities within 4 weeks. Patient will be able to bend and lift an object of at least 10# to decrease pain with lifting at work within 6 weeks. Patient will be able to stand for 30 minutes without increase in lumbar pain within 8 weeks. Insurance [facility] - O Care Teams Electricity Trader Relationship Specialty Start Date End Date Rios Brower APRN [address] [place] [id number] PCP - General Family Medicine 05/13/25
--- OUTSIDE RECORDS SUMMARY | 2025-06-29 11:54 | XMS_ITS | Encounter Summary ---
Author Organization [employer] Address [address] [place] [address] 7 h Floor [place] [phone] Care Team Providers Care Apartment Maintenance Name Role Phone Dianne Smith Primary Care Provider [phone] Reason for Visit * Reason Onset Date Comments chart prep 06/27/2025 Encounter Details Date Type Department Care Team ([facility] st Contact Info) Description 06/27/2025 Telephone [facility] MEDICINE [address] [place], [place] [phone] Dianne Smith ANP [address] [place], [place] [phone] chart prep Social History Tobacco Use Types Packs/Day Years [...] encounter Miscellaneous Notes * Telephone Encounter - Alejandro James MA - 06/27/2025 8:54 AM EDT Chart Prep Labs: done Images: done Referrals: complete Vaccines due: Covid, Flu, Hep B, and Zoster Screenings: eye exam and foot exam Overdue care gaps: A1c and Glucose documented in this encounter Plan of Treatment Upcoming Encounters Date Type Department Care Team (Late st Contact Info) Description 08/25/2025 2:30 PM EST Office Visit [facility] MEDICINE [address] [place] [address] Dianne Smith ANP [address] [place] [address] 09/19/2025 2:00 PM EST Telemedicine [facility] CHC MED & PEDS [address] [place] [address] Eugenia Solis, SHIRAZ [address] [place] [address] documented as of this encounter Visit Diagnoses Not on filedocumented in this encounter Additional Health Concerns Assessment Noted Time PHQ-9 Depression Total Score: 14 025 12:17 PM EDT documented as of this encounter Care Teams Apartment Maintenance Relationship Specialty Start Date End Date Dianne Smith ANP [address] [place] [address] PCP - General Family Medicine 02/01/20 documented as of this encounter
--- OUTSIDE RECORDS SUMMARY | 2025-06-29 11:54 | XMS_ITS | Clinical Summary ---
Author Organization [employer] Address [address] [place] [address] 7[address] [place] [address] Care Team Providers Care Planning Coordinator Name Role Phone Francisco Almeida Primary Care Provider [phone] Allergies Active Allergy Reactions Criticality Noted Date [...] prn congestion, no more than 5 days -peruvian 5 tablet 024 Active FREESTYLE LITE test stripIndication s:New onset type 2 diabetes mellitus (HCC) Use to test blood sugar 2 times daily 100 each 12 024 2024 Active Lancets miscIndications :New onset type 2 diabetes mellitus (HCC) Use to test blood sugar 2 times daily 100 each 11 Active Blood Glucose Monitoring Suppl (FreeStyle [place] Lite) w/Device kitIndications: New onset type 2 diabetes mellitus (HCC) Use to test blood sugar 2 times daily 1 kit Active Alcohol Swabs padsIndications :New onset type 2 diabetes mellitus (HCC) 1 each if needed (to clean skin). 100 each 11 Active semaglutide (Ozempic) 2 MG/1.5ML solution pen-injectorInd ications:New onset type 2 diabetes mellitus (HCC) Take 0.25mg once weekly subcutaneously for 4 weeks, then 0.5mg once weekly 1 each 12 Active albuterol 108 (90 Base) MCG/ACT inhaler INHALE 2 PUFFS BY MOUTH EVERY 4 HOURS NEEDED FOR WHEEZING OR SHORTNESS OF BREATH 18 g 1 Active pantoprazole (ProtoNix) 40 MG EC tabletIndicatio ns:Gastroesopha geal reflux disease, unspecified whether esophagitis present TAKE 1 TABLET BY MOUTH EVERY DAY BEFORE BREAKFAST, DO NOT BREAK, CRUSH, DISSOLVE OR CHEW 90 tablet 1 Active varenicline (Chantix) 1 MG tabletIndicatio ns:Tobacco dependence Take 1 tablet (1 mg) by mouth 2 times daily. Take with full glass of water. Start after initial 7d rx. 60 tablet 2 Active nicotine polacrilex (Nicorette) 2 MG gumIndications: Tobacco dependence Chew 1 each (2 mg) if needed for smoking cessation. Every 1-2 hours as needed in place of cigarette 100 each Active fluticasone (Flonase) 50 MCG/ACT nasal sprayIndication s:Subacute sinusitis, unspecified location Administer 1 spray into each nostril Once per day. 16 g 2 Active varenicline (Chantix) 0.5 MG tabletIndicatio ns:Tobacco dependence Take 0.5 mg PO once daily on Days 1 through 3, then 0.5 mg PO twice daily on Days 4 through 7, then start 1mg twice daily prescription; take with full glass of water 11 tablet 025 Active naproxen sodium (Aleve) 220 MG tabletIndicatio ns:Sciatica of right side Take 1 tablet (220 mg) by mouth every 12 (twelve) hours if needed for mild pain. 60 tablet 1 025 2025 Active cyclobenzaprine (Flexeril) 5 MG tabletIndicatio ns:Sciatica of right side Take 1 tablet (5 mg) by mouth if needed at bedtime for muscle spasms for up to 10 days. 10 tablet 025 Active clonazePAM (KlonoPIN) 0.5 MG tabletIndicatio ns:Anxiety Take 1 tablet (0.5 mg) by mouth if needed in the morning and at bedtime for anxiety. Do not start before April 28, 2025. 60 tablet 1 025 Active metoprolol succinate XL (Toprol-XL) 100 MG 24 hr tabletIndicatio ns:Essential (primary) hypertension TAKE 1 TABLET BY MOUTH EVERY DAY 90 tablet 2 025 Active losartan-hydroC HLOROthiazide (Hyzaar) 50-12.5 MG tabletIndicatio ns:Essential (primary) hypertension TAKE 1 TABLET BY MOUTH EVERY MORNING 90 tablet 2 025 Active metoprolol succinate XL (Toprol-XL) 100 MG 24 hr tabletIndicatio ns:Essential (primary) hypertension TAKE 1 TABLET BY MOUTH EVERY DAY 90 tablet 2 024 2024 Discontinued losartan-hydroC HLOROthiazide (Hyzaar) 50-12.5 MG tabletIndicatio ns:Essential (primary) hypertension TAKE 1 TABLET BY MOUTH EVERY MORNING 90 tablet 1 025 2024 Discontinued Active Problems Problem Noted Date Diagnosed Date Other social stressor 06/14/2025 Flu-like symptoms 05/23/2025 Assessment & Plan (05/23/2025 11:40 AM EDT): Orders: Influenza A (ID NOW Rapid Molecular) Influenza B (ID NOW Rapid Molecular) POCT Rapid COVID Ag POCT rapid strep A manually resulted Bronchitis 05/23/2025 Assessment & Plan (05/23/2025 11:40 AM EDT): Screening for malignant neoplasm of colon 2024 [...] ro bronchiectasis? Anxiety 05/06/2023 Assessment & Plan (01/19/2025 12:40 PM EDT): During IBH Consult Cece presenting with excessive worry/anxiety, difficulty controlling worry, anxiety/worry associated to restlessness and/or feeling keyed-up/On edge , easily fatigued , difficulty concentrating and/or mind going blank , irritability, and sleep disturbance difficulty falling asleep, and Fear ; for a period of 0-6 mo, for most or all symptoms in the context of relationship issues. Pt reported she has been feeling anxious lately due to ending her romantic relationship. Pt coping strategies includes keeping herself busy, traveling and spending time with her family. Smitha is processing her emotions while at the same time reinforcing self-care. PCP prescribes medication to treat her anxiety PRN. Assessment & Plan (05/06/2023 8:29 PM EDT): [...] loosen mucus + Flonase nasal Take Acetaminophen (Tylenol )/Ibuprofen as needed to reduce fever, headache, body [...] 72 hours (temperature should be less than 100 F without medication). Assessment & Plan (05/06/2023 8:28 [...] evident what makes people's BG go up. Hypertension associated with diabetes 08/26/2017 Overview (07/19/2024): Metoprolol succ XL 100mg [...] Resolved Date Sore throat 05/06/2023 03/19/2024 Encounters * This document contains information received from the source organization and may not represent a complete record from that organization. Date Type Department Care Team Description 06/28/2025 11:00 AM EDT Office Visit [address] [address] Francisco Almeida ANP Hypertension associated with diabetes (HCC) (Primary Dx); Hypertension complicating diabetes (HCC); Tobacco dependence; Fatigue, unspecified type; Pain in both hands; Polyarthralgia 06/28/2025 Telephone [facility] [address] [place] [phone] Francisco Almeida ANP 06/28/2025 Travel 06/27/2025 Travel 06/27/[address] [address] Francisco Almeida ANP chart prep 06/23/2025 10:00 AM EDT Clinical Support [facility] [address] [place] [address] Eugenia Solis, SHIRAZ Anxiety (Primary Dx) 06/23/2025 Travel 06/15/2025 Refill [facility] [address] [place] [phone] Francisco Almeida ANP Essential (primary) hypertension 06/07/2025 Telephone [facility] [address] [place] [address] Eugenia Solis RN 06/07/2025 Telephone [facility] [address] [place] [phone] Francisco Almeida ANP Appointment Request 05/27/[address] [address] Francisco Almeida ANP chart prep 05/23/2025 10:40 AM EDT Office Visit [facility] [address] [address] Sandra Jung NP Bronchitis (Primary Dx); Flu-like symptoms 05/23/2025 Travel 04/27/2025 Telephone [facility] [address] [place] [address] Eugenia Solis RN 04/21/2025 Results Follow-Up [facility] [address] [place] [address] Hailey Gupta MD POCT urinalysis dipstick manually resulted, Culture, Urine, Routine 04/20/2025 Refill [facility] [address] [place] [address] Francisco Almeida ANP Anxiety 04/14/2025 9:30 AM EDT Clinical Support [facility] [address] [place] [address] Eugenia Solis RN Anxiety 04/14/2025 Travel 04/13/2025 3:40 PM EDT Office Visit [facility] [address] [address] Hailey Gupta MD Sciatica of right side (Primary Dx); Low back pain, unspecified back pain laterality, unspecified chronicity, unspecified whether sciatica present 04/13/2025 Travel from Last 3 Months Immunizations Immunization Administration Dates Next Due Influenza injectable quadriv [...] Mass Index 27.95 06/28/2025 11:10 AM EDT Plan of Treatment Upcoming Encounters Date Type Department Care Team (Late st Contact Info) Description 08/25/2025 2:30 PM EST Office Visit [facility] [address] [place] [address] Francisco Almeida, ANP [address] [place] [address] 09/19/2025 2:00 PM EST Telemedicine [facility] [address] [place], [place] [phone] Eugenia Solis, RN [address] [place] [address] Health Maintenance Due Date Last Done Comments CT Colonography 1972 FIT DNA/Cologuard 1972 FIT 1972 FOBT 1972 Sigmoidoscopy 1972 Diabetes: Foot Exam 1982 Eye Exam 1982 Family Planning (PISQ) 1987 Hepatitis C Screening 1990 Hepatitis B Vaccines (1 of 3 - 19+ 3-dose series) 1991 Zoster Vaccines (1 of 2) 2022 Diabetes: Urine Protein Screening 06/21/2023 06/21/2022 Lipid Panel 09/25/2024 09/25/2023, 10/0 03/2022, 05/29/2020 COVID-19 Vaccine ( season) 2025 09/23/2023, 02/23/2021, 01/26/2021 Influenza Vaccine (#1) 2025 , 06/21/2022, 09/26/2020, Additional history exists Cervical Cancer Screening 09/26/2025 HPV/Cotest 09/26/2025 09/26/2020 Pap Smear 09/26/2025 09/26/2020 Depression Monitoring 12/12/2025 06/14/2025, 025 Mammogram 12/22/2025 12/22/2024, 10/17, 02/17/2019, Additional history exists Diabetes: Hemoglobin A1C 12/27/2025 025, 01/18/2025, 10/11/2024, Additional history exists Alcohol/Substance Use Screening 01/18/2026 01/18/2025 SDOH Screening 01/18/2026 01/18/2025 Disability Screening 04/14/2026 04/14/2025 Tobacco Screening 06/28/2026 06/28/2025 Colonoscopy 10/05/2030 10/05/2020 Colorectal Cancer Screening 10/05/2030 DTaP/Tdap/Td Vaccines (3 - Td or Tdap) [...] VIEWS BILATERAL Routine 06/29/2025 10:44 AM EDT CBC WITH AUTO DIFFERENTIAL Routine 06/29/2025 10:12 AM EDT Fatigue, unspecified type POCT GLYCATED HEMOGLOBIN, TOTAL Routine 06/28/2025 11:24 AM EDT Hypertension complicating diabetes (HCC) POCT GLUCOSE Routine 06/28/2025 11:18 AM EDT Hypertension complicating diabetes (HCC) POCT JEFFREY-14 URINE DRUG SCREEN Routine 06/23/2025 10:24 AM EDT Anxiety POCT INFLUENZA B (ID NOW RAPID MOLECULAR) Routine 05/23/2025 10:52 AM EDT Flu-like symptoms POCT INFLUENZA A (ID NOW RAPID MOLECULAR) Routine 05/23/2025 10:52 AM EDT Flu-like symptoms POCT RAPID STREP A Routine 05/23/2025 10 :45 AM EDT Flu-like symptoms POCT RAPID COVID ANTIGEN Routine 05/23/2025 10:45 AM EDT Flu-like symptoms POCT JEFFREY-14 URINE DRUG SCREEN Routine 04/14/2025 9:50 AM EDT Anxiety CULTURE, URINE, ROUTINE Routine 04/13/2025 3:55 PM EDT Low back pain, unspecified back pain laterality, unspecified chronicity, unspecified whether sciatica present POCT URINALYSIS DIPSTICK Routine 04/13/2025 3:53 PM EDT Low back pain, unspecified back pain laterality, unspecified chronicity, unspecified whether sciatica present BI MAMMOGRAM SCREENING TOMOSYNTHESIS BILATERAL Routine 12/22/2024 12:15 PM EDT LIPID PANEL WITH REFLEX TO DIRECT LDL Routine 09/25/2023 8:59 AM EST Essential hypertension ALBUMIN, RANDOM URINE W/CREATININE Routine 06/21/2022 10:31 AM EDT HM COLONOSCOPY Routine 10/05/2020 HPV MRNA E6/E7 Routine 09/26/2020 10:19 AM EST THINPREP PAP Routine 09/26/2020 10:19 AM EST HIV 1/2 ANTIGEN/ANTIBODY, FOURTH GENERATION W/RFL Routine 05/29/2020 9:40 AM EDT from Last 3 Months or Most Recently Relevant to Health Maintenance Results * XR Hand 3+Views Bilateral (06/29/2025 10:44 AM EDT) Anatomical Region Laterality Modality Upper Extremities, Hand Bilateral Radiogra [facility] 06/29/2025 10:4 4 AM EDT Narrative 06/29/2025 11:08 AM EDT [address] [address] XRay Report Signed Patient: Stacey Shaw MR# : [id number] : 1970 Acct:[id number] Age/Sex: 54 / F ADM Date: 06/29/25 Loc: HO.HHCX Attending Dr: Francisco Almeida NP Ordering Physician: FRANCISCO ALMEIDA NP Date of Service: 06/29/25 Procedure(s): XR Hand Bilat min 3v Accession Number(s): [id number] cc: FRANCISCO ALMEIDA NP Reason for Exam: [...] 06/29/25 1105 DD/ 1044 TD/TT: 06/29/25 1050 Clerical Supervisor: ENA Procedure Note Donotuseinterpreter, Image - 06/29/[address] [address] XRay Report Signed Patient: Stacey ShawMR# : [id number] : 1970Acct:[id number] Age/Sex: 54 / FADM Date: 06/29/25 Loc: HO.HHCX Attending Dr: Francisco Almeida NP Ordering Physician: FRANCISCO ALMEIDA NP Date of Service: 06/29/25 Procedure(s): XR Hand Bilat min 3v Accession Number(s): [id number] cc: FRANCISCO ALMEIDA NP Reason for Exam: [...] 06/29/25 1105 DD/ 1044 TD/TT: 06/29/25 1050 Clerical Supervisor: ENA Francisco BELLAMY IMG XR PROCEDURES Final Result * CBC auto differential (06/29/2025 10:12 AM EDT) White Blood Count 8.0 4.8 - 10.8 X10*3/uL [facility] Red Blood Count 4.90 4.20 - 5.50 X10*6/uL [facility] Hemoglobin 14.4 12.0 - 16.0 g/dl [facility] Hematocrit 42.6 37.0 - 47.0 % [facility] Mean Corpuscular Volume 86.9 80.0 - 98.0 fL [facility] Mean Corpuscular Hemoglobin 29.4 27.0 - 33.0 pg [facility] Mean Corpuscular HGB Conc 33.8 31.0 - 35.0 g/dl [facility] Red Cell Distribution Width 14.2 11.0 - 16.0 % [facility] Platelet Count 281 160 - 400 X10*3/uL [facility] Mean Platelet Volume 10.4 9.4 - 12.3 fL [facility] Neutrophils Percent Auto 63.4 45 - 73 % [facility] Imm Gran Pct Auto 0.4 0.0 - 0.4 % [facility] Lymphocytes Percent Auto 23.1 20 - 40 % [facility] Monocytes Percent Auto 10.2 2 - 11 % [facility] Eosinophils Percent Auto 2.3 0 - 4 % [facility] Basophils Percent Auto 0.6 0 - 2 % [facility] NRBC Pct Auto 0.0 0.0 - 0.2 /100WBC [facility] Neutrophils Absolute Auto 5.1 2.0 - 8.3 x10*3/uL [facility] Imm Gran Abs Auto 0.03 0.00 - 0.03 X10*3/uL [facility] Lymphocytes Absolute Auto 1.8 1.2 - 4.9 X10*3/uL [facility] Monocytes Absolute Auto 0.8 0.1 - 1.2 X10*3/uL [facility] Eosinophils Absolute Auto 0.2 0.0 - 0.4 X10*3/uL [facility] Basophils Absolute Auto 0.1 0.0 - 0.2 X10*3/uL [facility] NRBC Abs Auto 0.000 0.0 - 0.012 X10*3/uL [facility] Blood Venous blood specimen / Unknown 06/29/2025 10:12 AM EDT 06/29/2025 11:18 AM EDT us Francisco BELLAMY LAB BLOOD ORDERABLES Final Resul t [facility] [address] [place] [phone] * (ABNORMAL) POCT Hgb A1c (06/28/2025 11:24 AM EDT) Hemoglobin A1C 6.7(A) 4.0 - 5.7 % QC Media Lot # [id number] Lot# Expiration Date 5, Blood 06/28/2025 11:2 4 AM EDT us Francisco Almeida ANP POINT OF CARE TEST ENTER/EDIT OR DERABLES Final Result * POCT Glucose (06/28/2025 11:18 AM EDT) Glucose Blood, POC 96 60 - 200 mg/dL QC Media Lot # [id number] Lot# Expiration Date [id number] Blood Capillary blood specimen / Unknown 06/28/2025 11:18 AM EDT us Francisco Almeida ANP POINT OF CARE TEST ENTER/EDIT OR DERABLES Final Result * POCT JEFFREY-14 Urine Drug Screen (06/23/2025 10:24 AM EDT) Only the most recent of2 resultswithin the time period is included. THC Negative Negative Cocaine Screen, Urine Negative Negative Opiate Screen, Urine Negative Negative Methamphetamine Screen Urine Negative Negative Amphetamine Screen, Urine Negative Negative Benzodiazepines Screen, Urine Negative Negative Barbiturate Screen, Urine Negative Negative Methadone Screen, Urine Negative Negative Buprenophine Screen, Urine Negative Negative TCA, Urine Negative Negative MDMA Urine Negative Negative ng/mL Oxycodone Screen, Urine Negative Negative Phencyclidine (PCP), Urine Negative Negative Propoxyphene, Urine Negative Negative Fentanyl, Urine Negative Negative Urine Urine specimen obtained by clean catch procedure / Unknown 06/23/2025 10:24 AM EDT Narrative Eugenia Solis RN - 06/23/2025 10:24 AM EDT . Internal Pass Control Lot# [id number] Exp: 07-15-26 Francisco BELLAMY POINT OF CARE TEST ENTER/EDIT OR DERABLES Final Result * Influenza B (ID NOW Rapid Molecular) (05/23/2025 10:52 AM EDT) Influenza B Negative Negative, Indeterminate [facility] Swab 05/23/2025 10:5 2 AM EDT Sandra Jung NP POINT OF CARE TEST ENTER/EDIT OR DERABLES Final Result Performing Organization Address City/[facility]/ZIP Co de Phone Number [facility] [address] [place] [phone] * Influenza A (ID NOW Rapid Molecular) (05/23/2025 10:52 AM EDT) Influenza A Negative Negative, Indeterminate [facility] Swab 05/23/2025 10:5 2 AM EDT Sandra Jung INTELLIGENCE OPERATIONS SPECIALIST POINT OF CARE TEST ENTER/EDIT OR DERABLES Final Result Performing Organization Address [facility]/ZIP Co de Phone Number [facility] [address] [place] [phone] * POCT Rapid COVID Ag (05/23/2025 10:45 AM EDT) [facility] Rapid COVID Ag Negative Swab 05/23/2025 10:4 5 AM EDT Result [facility] Sandra Jung INTELLIGENCE OPERATIONS SPECIALIST POINT OF CARE TEST ENTER/EDIT OR DERABLES Final Result * POCT rapid strep A manually resulted (05/23/2025 10:45 AM EDT) [facility] Rapid Strep A Screen Negative Negative, None Detected Swab 05/23/2025 10:4 5 AM EDT Sandra Jung INTELLIGENCE OPERATIONS SPECIALIST POINT OF CARE TEST ENTER/EDIT OR DERABLES Final Result * Culture, Urine, Routine (04/13/2025 3:55 PM EDT) Urine Urine specimen obtained by clean catch procedure / Unknown 04/13/2025 3:55 PM EDT 04/14/2025 11:15 AM EDT Comment:UACC Narrative [facility] - 04/15/2025 8:59 AM EDT Urine Culture Report Result Urine Culture < 10,000 cfu/ml Specimen Source: Urine clean catch Hailey Gupta MD LAB MICROBIOLOGY - GENERAL OR DERABLES Final Result [facility] [address] [place] [phone] * (ABNORMAL) POCT urinalysis dipstick manually resulted (04/13/2025 3:53 PM EDT) [facility] Color, UA Yellow Clarity, UA Clear Glucose, UA Negative Bilirubin, UA Negative Ketones, UA Negative Spec Grav, UA 1.025 Blood, UA Positive(A) Negative, None Detected Comment:Large pH, UA 6.5 Protein, UA Negative Urobilinogen, UA 0.2 Leukocytes, UA Trace Negative, Rare, Trace Nitrite, UA Negative Negative, None Detected Appearance, UA OK Urine 04/13/2025 3:53 PM EDT Hailey Gupta MD POINT OF CARE TEST ENTER/EDIT ORDERABLES Final Result * BI Mammogram Screening Tomosynthesis Bilateral (12/22/2024 12:15 PM EDT) Anatomical Region Laterality Modality Breast Bilateral Mammography 12/22/2024 12:1 5 PM EDT Narrative 12/28/2024 4:22 PM EDT [facility] [address] [place] [address] Mammography Report Signed Patient: Stacey Shaw MR# : [id number] : 1970 Acct:[id number] Age/Sex: 54 / F ADM Date: 12/22/24 Loc: JOSSEO Attending Dr: Lucila Barrientos MD Ordering Physician: Lucila Barrientos MD Results: 2Benign F indings Date of Service: 12/22/24 Follow Up: 1 Year From Orig ina Mammogram Procedure(s): MM tomosynthesis screening BI Accession Number(s): [id number] cc: Lucila Barrientos MD EXAMINATION: MM SCREENING DIGITAL BREAST TOMOSYNTHESIS, BILATERAL CLINICAL INFORMATION: Screening. Asymptomatic. COMPARISON: Mammography: Comparison is made with available priors TECHNIQUE: Digital breast mammography with tomosynthesis is performed in both the craniocaudal and mediolateral oblique views along with computer-aided detection (CAD). FINDINGS: The breasts are heterogeneously dense, which may obscure small masses (ACR BI-RADS breast composition Category c). Focal asymmetry in the central outer left breast posterior depth is decreased in size in comparison to 2018. There are no significant masses, abnormal calcifications, or other abnormalities. MM/MM tomosynthesis screening BI IMPRESSION: No mammographic evidence of malignancy. ASSESSMENT: BI-RADS BI-RADS 2 - Benign Findings RECOMMENDATION: Routine annual mammography screening. 1 year F/U This examination should not preclude the clinical evaluation of a suspicious palpable abnormality. This patient's information was entered into a reminder system with a target due date for their next mammogram. Electronically signed by: Laney Serna DO 12/28/2024 04:19 PM EDT RP Dictated By: Laney Serna DO Signed By: <Electronically signed by Laney Serna DO in OV> 12/28/24 1619 DD/ 1215 TD/TT: 12/22/24 1235 Clerical Supervisor: Procedure Note Donotuseinterpreter, Image - 12/28/2024 Lisa [facility] [address] [place], [place] [address] Mammography Report Signed Patient: Stacey ShawMR# : [id number] : 1970Acct:[id number] Age/Sex: 54 / FADM Date: 12/22/24 Loc: HO.MAMMO Attending Dr: Lucila Barrientos MD Ordering Physician: Lucila Barrientos MDResults: 2Benign F indings Date of Service: 12/22/24Follow Up: 1 Year From Orig ina Mammogram Procedure(s): MM tomosynthesis screening BI Accession Number(s): [id number] cc: Lucila Barrientos MD EXAMINATION: MM SCREENING DIGITAL BREAST TOMOSYNTHESIS, BILATERAL CLINICAL INFORMATION: Screening. Asymptomatic. COMPARISON: Mammography: Comparison is made with available priors TECHNIQUE: Digital breast mammography with tomosynthesis is performed in both the craniocaudal and mediolateral oblique views along with computer-aided detection (CAD). FINDINGS: The breasts are heterogeneously dense, which may obscure small masses (ACR BI-RADS breast composition Category c). Focal asymmetry in the central outer left breast posterior depth is decreased in size in comparison to 2018. There are no significant masses, abnormal calcifications, or other abnormalities. MM/MM tomosynthesis screening BI IMPRESSION: No mammographic evidence of malignancy. ASSESSMENT: BI-RADS BI-RADS 2 - Benign Findings RECOMMENDATION: Routine annual mammography screening. 1 year F/U This examination should not preclude the clinical evaluation of a suspicious palpable abnormality. This patient's information was entered into a reminder system with a target due date for their next mammogram. Electronically signed by: Laney Serna DO 12/28/2024 04:19 PM EDT RP Dictated By: Laney Serna DO Signed By: <Electronically signed by Laney Serna DO in OV> 12/28/24 1619 DD/ 1215 TD/TT: 12/22/24 1235 Clerical Supervisor: Lucila Barrientos MD IMG BI PROCEDURES Final Result * (ABNORMAL) Lipid Panel with Reflex to Direct LDL (09/25/2023 8:59 AM EST) Triglycerides 111 <150 mg/dL [facility] Comment:Desirable Triglyceri de: less than 150 mg/dLBorderline High Triglyceride 150-199 mg/dLHigh Triglyceride: 200-499 mg/dLVery High Triglyceride: greater than or equal to 5OO mg/dL Cholesterol 163 <200 mg/dL [facility] Comment:Desirable Cholestero l: less than 200 mg/dLBorderline High Cholesterol: 200-239 mg/dLHigh Cholesterol: greater than 239 mg/dL LDL Cholesterol Calculated 103(H) <100 mg/dL [facility] Comment:Desirable LDL: less than 100 mg/dLNear Optimal/Above Optimal LDL: 110- 129 mg/dLBorderline High LDL: 130-159 mg/dLHigh LDL: 160-189 mg/dLVery High LDL: greater than or equal to 190 mg/dL HDL Cholesterol 38(L) >40 mg/dL [facility] Comment:Desirable HDL: great er than 40 mg/dL Note: This HDL assay may give artificially low results in patients with liver disease. Blood 09/25/2023 8:59 AM EST 09/25/2023 11:39 AM EST Lucila Barrientos MD LAB BLOOD ORDERABLES Final Resul t [facility] [address] [place] [phone] * ALBUMIN, RANDOM URINE W/CREATININE (06/21/2022 10:31 AM EDT) Microalbumin Urine <0.2 See Note: mg/dL [facility] Comment: Reference Range: Reference Range Not established Microalb/Creat Ratio NOTE <30 mcg/mg creat [facility] Comment: NOTE: The urine albumin value is less than 0.2 mg/dL therefore we are unable to calculate excretion and/or creatinine ratio. The ADA defines abnormalities in albumin excretion as follows: Albuminuria Category Result (mcg/mg creatinine) Normal to Mildly increased <30 Moderately increased 30-299 Severely increased > OR = 300 The ADA recommends that at least two of three specimens collected within a 3-6 month period be abnormal before considering a patient to be within a diagnostic category. Creatinine, Urine 70 20 - 275 mg/dL [facility] LEGACY LABS 06/21/2022 10:3 1 AM EDT [facility] LAB URINE ORDERABLES Final Resul t CONVERTED LEGACY LABS * Colonoscopy (10/05/2020) Pathologist [facility] Colonoscopy Normal Normal Narrative Alvina Dolan - 10/05/2020 Follow up confirmed by pcp order added Historical Provider HEALTH MAINTENANCE Final Result * THINPREP PAP (09/26/2020 10:19 AM EST) Pathologist [facility] Clinical Information: None given [facility] COMMENT SEE COMMENT [facility] Comment: EXPLANATORY NOTE: The Pap is a screening test for cervical cancer. It is not a diagnostic test and is subject to false negative and false positive results. It is most reliable when a satisfactory sample, regularly obtained, is submitted with relevant clinical findings and history, and when the Pap result is evaluated along with historic and current clinical information. Sales Process Manager : SEE COMMENT [facility] Comment: CMG, CT(ASCP) CT screening location: [place] [address] Interpretation/R esult: Negative for intraepithelial lesion or malignancy. [employer] [facility] LMP: NONE [facility]IVEN [facility] Prev. BX: NONE [facility] Prev. PAP: NONE [facility] SOURCE: None given [facility] Statement Of Adequacy: SEE COMMENT [facility] Comment: Satisfactory for evaluation. Endocervical/transformation zone component absent. Age and/or menstrual status not provided 09/26/2020 10:1 9 AM EST [facility] LAB PATHOLOGY ORDERABLES Final R esult Performing Organization Address [facility] Phone Number [facility] [address] [place] [address], * HPV mRNA E6/E7 (09/26/2020 10:19 AM EST) HPV nRNA E6/E7 Not Detected Not Detected [facility] Comment: This test was performed using the APTIMA HPV Assay ([employer] This assay detects E6/E7 viral messenger RNA (mRNA) from 14 high-risk HPV types (16,18,31,33,35,39,45,51,52,56,58,59,66,68). The analytical performance characteristics of this assay have been determined by [employer]. The modifications have not been cleared or approved by the FDA. This assay has been validated pursuant to the CLIA regulations and is used for clinical purposes. 09/26/2020 10:1 9 AM EST Francisco Almeida [facility] LAB BLOOD ORDERABLES Final Resul t Performing Organization Address [facility] Phone Number [facility] [address] * HIV 1/2 ANTIGEN/ANTIBODY,FOURTH GENERATION W/RFL (05/29/2020 9:40 AM EDT) HIV-1/2 ANTIGEN AND ANTIBODIES, 4TH GENERATION W/ REFLEX NON-REACT YANNI NON-REACT YANNI [facility] Comment: HIV-1 antigen and HIV-1/HIV-2 antibodies were not detected. There is no laboratory evidence of HIV infection. PLEASE NOTE: This information has been disclosed to you from records whose confidentiality may be protected by state law. If your state requires such protection, then the state law prohibits you from making any further disclosure of the information without the specific written consent of the person to whom it pertains, or as otherwise permitted by law. A general authorization for the release of medical or other information is NOT sufficient for this purpose. For additional information please refer to http://InvestCloud.RadarFind/faq/OKW408 (This link is being provided for informational/ educational purposes only.) The performance of this assay has not been clinically validated in patients less than 2 years old. HIV-1/2 ANTIGEN AND ANTIBODIES, 4TH GENERATION W/ REFLEX NON-REACT YANNI NON-REACT YANNI [facility] Comment: HIV-1 antigen and HIV-1/HIV-2 antibodies were not detected. There is no laboratory evidence of HIV infection. PLEASE NOTE: This information has been disclosed to you from records whose confidentiality may be protected by state law. If your state requires such protection, then the state law prohibits you from making any further disclosure of the information without the specific written consent of the person to whom it pertains, or as otherwise permitted by law. A general authorization for the release of medical or other information is NOT sufficient for this purpose. For additional information please refer to http://Ule/faq/APT916 (This link is being provided for informational/ educational purposes only.) The performance of this assay has not been clinically validated in patients less than 2 years old. HIV-1/2 ANTIGEN AND ANTIBODIES, 4TH GENERATION W/ REFLEX NON-REACT YANNI NON-REACT YANNI [facility] Comment: HIV-1 antigen and HIV-1/HIV-2 antibodies were not detected. There is no laboratory evidence of HIV infection. PLEASE NOTE: This information has been disclosed to you from records whose confidentiality may be protected by state law. If your state requires such protection, then the state law prohibits you from making any further disclosure of the information without the specific written consent of the person to whom it pertains, or as otherwise permitted by law. A general authorization for the release of medical or other information is NOT sufficient for this purpose. For additional information please refer to http://InvestCloud.RadarFind/faq/FTV882 (This link is being provided for informational/ educational purposes only.) The performance of this assay has not been clinically validated in patients less than 2 years old. 05/29/2020 9:40 AM EDT us Francisco [facility] LAB BLOOD ORDERABLES Final Resul t [facility] [address] from Last 3 Months or Most Recently Relevant to Health Maintenance Insurance BS PPO Care Teams Planning Coordinator Relationship Specialty Start Date End Date Francisco Almeida ANP [address] [place] [address] PCP - General Family Medicine 02/01/20
--- OUTSIDE RECORDS SUMMARY | 2025-06-29 11:54 | XMS_ITS | Clinical Summary ---
Author Organization [facility] Address [address] [place] [address] Care Team Providers Care Lawn And Garden Technician Name Role Phone Dianne Smith NP Primary Care Provider [phone] Allergies Active Allergy Reactions Criticality Noted Date [...] 2) 2022 COVID-19 Vaccine (2 - season) 2025 09/23/2023 Influenza Vaccine (#1) 2025 4, 06/21/2022, 09/26/2020, Additional history exists DTap / Tdap / Td (3 - Td or Tdap) 03/15/2034 03/15/2024, 01/20/2019 Pneumococcal Vaccine Aged Out 09/23/2023, 01/21/20 19 No longer eligible based on patient's age to complete this topic RSV Ped < 20 months Aged Out No longe r eligible based on patient's age to complete this topic Care Teams Lawn And Garden Technician Relationship Specialty Start Date End Date Dianne Smith NP [address] [place] [address] PCP - General Nurse Practitioner 03/15/24
--- OUTSIDE RECORDS SUMMARY | 2025-06-29 11:54 | XMS_ITS | Encounter Summary ---
Author Organization [employer] Address [address] [place] [address] 7t [place] [address] Care Team Providers Care Mixer Operator Tablets Name Role Phone Dianne Smith Primary Care Provider [phone] Reason for Visit * Reason Comments Med Refill Encounter Details Date Type Department Care Team ([facility] st Contact Info) Description 01/06/2025 Refill [facility] [address] [place], [place] [phone] Dianne Smith ANP [address] [place], [place] [phone] Anxiety Social History Tobacco Use Types Packs/Day [...] Description 08/25/2025 2:30 PM EST Office Visit [facility] [address] [place] [address] Dianne Smith ANP [address] [place] [address] 09/19/2025 2:00 PM EST Telemedicine [facility] PEDS [address] [place] [address] Eugenia Solis, RN [address] [place] [address] documented as of this encounter Visit Diagnoses Diagnosis Anxiety Anxiety state, unspecified documented in this encounter Additional Health Concerns Assessment Noted Time PHQ-9 Depression Total Score: 6 01/19/20 24 1:17 PM EDT documented as of this encounter Care Teams Mixer Operator Tablets Relationship Specialty Start Date End Date Dianne Smith ANP [address] [place] [address] PCP - General Family Medicine 02/01/20 documented as of this encounter
--- OUTSIDE RECORDS SUMMARY | 2025-06-29 11:54 | XMS_ITS | Encounter Summary ---
Author Organization [employer] Address [address] [place] [address] 7 [place] [address] Care Team Providers Care Region Manager Name Role Phone Dianne Smith Primary Care Provider [phone] Encounter Details Date Type Department Care Team (Late st Contact Info) Description 08/22/2022 Orders Only [facility] MED & PEDS [address] [place] [address] Dianne Smith ANP [address] [place] [address] Anxiety (Primary Dx) Social History Tobacco Use [...] Description 08/25/2025 2:30 PM EST Office Visit [facility] MED[facility]INE [address] [place] [address] Dianne Smith ANP [address] [place] [address] 09/19/2025 2:00 PM EST Telemedicine [facility] MED [facility] PED[facility] [address] [place] [address] Eugenia Solis, RN [address] [place] [address] documented as of this encounter Visit Diagnoses Diagnosis Anxiety- Primary Anxiety state, unspecified documented in this encounter Care Teams Region Manager Relationship Specialty Start Date End Date Dianne Smith ANP [address] [place] [address] PCP - General Family Medicine 02/01/20 documented as of this encounter
--- OUTSIDE RECORDS SUMMARY | 2025-06-29 11:54 | XMS_ITS | Encounter Summary ---
Author Organization [employer] Address [address] [place] [address] 7 [place] [address] Care Team Providers Care Service Porter Name Role Phone Francisco Almeida JOSESITO Primary Care Provider [phone] Reason for Referral * Imaging (Routine) - Closed Specialty Diagnoses / Procedures Referred By Steff chen Referred To Contact Radiology Diagnoses Hemoptysis Hoarseness of voice Sore throat Procedures CT Soft Tissue Neck w/ Contrast Lucila Barrientos MD [address] [place] [address] Phone: tel: fax: [facility] [address] [place] [address] Phone: tel: fax: Referral ID Status Reason Start Date Expiration Date Visits Re quested Visits Authorized [id number] Closed 10/08/2023 2024 1 1 Encounter Details Date Type Department Care Team (Late st Contact Info) Description 10/08/2023 Orders Only [facility] [address] [place], [place] [phone] Lucila Barrientos MD [address] [place], [place] [phone] Hemoptysis (Primary Dx); Hoarseness of voice; Sore [...] Description 08/25/2025 2:30 PM EST Office Visit [facility] [address] [place] [address] Francisco Almeida ANP [address] [place] [address] 09/19/2025 2:00 PM EST Telemedicine [facility] [address] [place], [place] [phone] Eugenia Solis RN [address] [place] [address] Scheduled Orders Name Type Priority Associated Diagnoses [...] PM EST Narrative 11/27/2023 5:42 AM EDT [facility] [address] [place] [address] Mammography Report Signed Patient: Stacey Shaw MR# : [id number] : 1970 Acct:[id number] Age/Sex: 53 / F ADM Date: 11/05/23 Loc: [facility] Attending Dr: Lucila Barrientos MD Ordering Physician: Lucila Barrientos MD Results: 1Negative Date of Service: 11/05/23 Follow Up: 1 Year From Orig inal Mammogram Procedure(s): MM tomosynthesis screening BI Accession Number(s): [id number] cc: FRANCISCO ALMEIDA NP; Lucila Barrientos MD EXAMINATION: MM SCREENING DIGITAL [...] in OV> 11/27/23 0538 DD/ 1418 TD/TT: Client Solutions Specialist: Procedure Note Donotuseinterpreter, Image - 11/27/2023 [facility] [address] [place], [place] [address] Mammography Report Signed Patient: Stacey ShawMR# : [id number] : 1970Acct:[id number] Age/Sex: 53 / FADM Date: 11/05/23 Loc: [facility] Attending Dr: Lucila Barrientos MD Ordering Physician: Lucila Barrientos MDResults: 1Negative Date of Service: 11/05/23Follow Up: 1 Year From Orig inal Mammogram Procedure(s): MM tomosynthesis screening BI Accession Number(s): [id number] cc: FRANCISCO ALMEIDA NP; Lucila Barrientos MD EXAMINATION: MM SCREENING DIGITAL [...] for their next mammogram. Dictated By: Cecy Thakkra MD Signed By: <Electronically signed by Cecy Thakkar MD in OV> 11/27/23 0538 DD/ 1418 TD/TT: Client Solutions Specialist: Lucila Barrientos MD IMG BI PROCEDURES Final Result documented in this encounter Visit Diagnoses Diagnosis Hemoptysis- Primary Hoarseness of voice Dysphonia Sore throat Acute pharyngitis documented in this encounter Care Teams Service Porter Relationship Specialty Start Date End Date Francisco Almeida ANP [address] [place] [address] PCP - General Family Medicine 02/01/20 documented as of this encounter
--- OUTSIDE RECORDS SUMMARY | 2025-06-29 11:54 | XMS_ITS | Encounter Summary ---
Author Organization [employer] Address [address] [place] [address] 7t h Floor [place] [phone] Care Team Providers Care Cement Or Concrete Finishing Supervisor Name Role Phone Dianne Smith Primary Care Provider [phone] Encounter Details Date Type Department Care Team (Latest Contact Info) Description 06/27/2025 Travel Social History Tobacco Use Types Packs/Day Years Used Date Smoking Tobacco: Every Day Cigarettes Passive Smoke Exposure: Current Smokeless Tobacco: Never Depression Answer Date Recorded Patient Health Questionnaire-9 Score 14 06/14/2025 Patient Health Questionnaire-9 Score 14 06/14/2025 Last PHQ-9: Questionnaire Data Not on file 0 06/14/2025 Housing Stability Answer Date Recorded What is your housing situation today? I have estivenyuliana rascon 01/18/[address] you [...] Description 08/25/2025 2:30 PM EST Office Visit [facility] [address] [place] [address] Dianne Smith ANP [address] [place] [address] 09/19/2025 2:00 PM EST Telemedicine [facility]S [address] [place], [place] [phone] Eugenia Solis, RN [address] [place], [place] [phone] documented as of this encounter Visit Diagnoses Not on filedocumented in this encounter Additional Health Concerns Assessment Noted Time PHQ-9 Depression Total Score: 14 025 12:17 PM EDT documented as of this encounter Care Teams Cement Or Concrete Finishing Supervisor Relationship Specialty Start Date End Date Dianne Smith ANP [address] [place] [address] PCP - General Family Medicine 02/01/20 documented as of this encounter
--- OUTSIDE RECORDS SUMMARY | 2025-06-29 11:54 | XMS_ITS | Encounter Summary ---
Author Organization [employer] Address [address] [place] [address] 7 [place] [address] Care Team Providers Care Citizen Participation Specialist Name Role Phone Dianne Smith Primary Care Provider [phone] Reason for Visit * Reason Comments Med Refill Encounter Details Date Type Department Care Team (Late st Contact Info) Description 05/27/2023 Refill [facility] [address] [place] [address] Dianne Smith ANP [address] [place] [address] Essential (primary) hypertension; Anxiety Social History Tobacco [...] [facility] [address] [place] [address] Dianne Smith ANP 230 [place] [address] 09/19/2025 2:00 PM EST Telemedicine [facility]EDS [address] [place], [place] [phone] Eugenia Solis, RN [address] [place], [place] [phone] documented as of this encounter Visit Diagnoses Diagnosis Essential (primary) hypertension Unspecified essential hypertension Anxiety Anxiety state, unspecified documented in this encounter Care Teams Citizen Participation Specialist Relationship Specialty Start Date End Date Dianne Smith ANP [address] [place] [address] PCP - General Family Medicine 02/01/20 documented as of this encounter
--- OUTSIDE RECORDS SUMMARY | 2025-06-29 11:54 | XMS_ITS | Encounter Summary ---
Author Organization [employer] Address [address] [place] [address] 7t [place] [address] Care Team Providers Care Guitar Teacher Name Role Phone Dianne Smith Primary Care Provider [phone] Encounter Details Date Type Department Care Team (Late st Contact Info) Description 06/28/2025 Telephone [facility] [address] [place], [place] [phone] Dianne Smith ANP [address] [place], [place] [phone] Social History Tobacco Use Types Packs/Day Years [...] Telephone Encounter - Alejandro James MA - 06/28/2025 2:50 PM EDT Note found in [facility], and given to Dianne Ayala * Telephone Encounter - Alejandro James MA - 06/28/2025 2:50 PM EDT ----- Message from Dianne Smith sent at 06/28/2025 12:27 PM EDT ----- Hello! 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 thanks documented in this encounter Plan of Treatment Upcoming Encounters Date Type Department Care Team (Late st Contact Info) Description 08/25/2025 2:30 PM EST Office Visit [facility] [address] [place] [address] Dianne Smith, JOSESITO [address] [place] [address] 09/19/2025 2:00 PM EST Telemedicine [facility] [address] [place] [address] Eugenia Solis, RN [address] [place] [address] documented as of this encounter Visit Diagnoses Not on filedocumented in this encounter Additional Health Concerns Assessment Noted Time PHQ-9 Depression Total Score: 14 06/14/ 025 12:17 PM EDT documented as of this encounter Care Teams Guitar Teacher Relationship Specialty Start Date End Date Dianne Smith ANP [address] [place] [address] PCP - General Family Medicine 02/01/20 documented as of this encounter
--- OUTSIDE RECORDS SUMMARY | 2025-06-29 11:54 | XMS_ITS | Encounter Summary ---
Author Organization [employer] Address [address] [place] [address] 7t h Floor [place] [phone] Care Team Providers Care Seo Expert Name Role Phone Dianne Smith Primary Care Provider [phone] Encounter Details Date Type Department Care Team (Latest Contact Info) Description 06/28/2025 Travel Social History Tobacco Use Types Packs/Day [...] Description 08/25/2025 2:30 PM EST Office Visit [facility]INE [address] [place] [address] Dianne Smith ANP [address] [place] [address] 09/19/2025 2:00 PM EST Telemedicine [facility] MED [facility] PEDS [address] [place], [place] [phone] Eugenia Solis, RN [address] [place], [place] [phone] documented as of this encounter Visit Diagnoses Not on filedocumented in this encounter Additional Health Concerns Assessment Noted Time PHQ-9 Depression Total Score: 14 025 12:17 PM EDT documented as of this encounter Care Teams Seo Expert Relationship Specialty Start Date End Date Dianne Smith ANP [address] [place] [address] PCP - General Family Medicine 02/01/20 documented as of this encounter
--- OUTSIDE RECORDS SUMMARY | 2025-06-29 11:54 | XMS_ITS | Clinical Summary ---
Author Organization [address] Address [address] [place] [address] Care Team Providers Care Housekeeper Caregiver Name Role Phone No, Pcp (Do Not [...] DAILY FOR 5 DAYS 06/23/2024 Active Immunizations Immunization Administration Dates Next Due Tdap 03/15/2024 Family [...] 94 07/14/2024 6:02 PM EDT Temperature 36.7 C (98.1 F) 07/14/2024 6:02 PM EDT Respiratory Rate 16 07/14/2024 6:02 PM EDT Oxygen Saturation 98% 07/14/2024 6:02 PM EDT Inhaled Oxygen Concentration - - Weight 87.1 kg (192 lb) 07/14/2024 6:02 PM EDT Height 175.3 cm (5' 9 ) 07/14/2024 6:02 PM EDT Body Mass Index 28.35 07/14/2024 6:02 PM EDT Plan of Treatment Health Maintenance Due Date Last Done Comments HIV screening 1985 Hepatitis C screening 1990 Pneumococcal Vaccine (50+ ye ars) (1 of 2 - PCV) 1991 Cervical cancer screening 1993 Breast cancer screening 2012 Lipid disorder screening 2012 Colon cancer screening, Colonoscopy 2017 Diabetes screening 2017 Shingles vaccine (Shingrix) (1 of 2 - Shingrix (RZV) 2 Dose Standard Series) 2022 Influenza vaccine 04/15/2025 Lung Cancer Screening 04/15/2025 04/15/2024 Covid-19 vaccine series ( - season) 2025 Tetanus adult (Td q 10,TDAP once) 03/15/2034 024 RSV Immunization (1 - 1-dose 75+ series) 2047 Meningococcal B Vaccine Aged Out No l onger eligible based on patient's age to complete this topic Meningococcal Vaccine Aged Out No pilar heladio eligible based on patient's age to complete this topic Insurance BS BS BS Care Teams Housekeeper Caregiver Relationship Specialty Start Date End Date No, Pcp (Do Not Change Name) PCP - General 07/14/24
--- OUTSIDE RECORDS SUMMARY | 2025-06-29 11:54 | XMS_ITS | Encounter Summary ---
Author Organization [employer] Address [address] [place] [address] 7 [place] [address] Care Team Providers Care Senior Outside Sales Representative Name Role Phone Dianne Smith Primary Care Provider [phone] Reason for Visit * Reason Comments Med Refill Encounter Details Date Type Department Care Team (Late st Contact Info) Description 05/21/2023 Refill [facility] MEDICINE [address] [place] [address] Dianne Smith ANP [address] [place] [address] Essential (primary) hypertension; Anxiety Social History Tobacco [...] Visit [facility] MEDICINE [address] [place] [address] Dianne Smith ANP [address] [place] [address] 09/19/2025 2:00 PM EST Telemedicine [facility] PEDS [address] [place], [place] [phone] Eugenia Solis, RN [address] [place], [place] [phone] documented as of this encounter Visit Diagnoses Diagnosis Essential (primary) hypertension Unspecified essential hypertension Anxiety Anxiety state, unspecified documented in this encounter Care Teams Senior Outside Sales Representative Relationship Specialty Start Date End Date Dianne Smith ANP [address] [place] [address] PCP - General Family Medicine 02/01/20 documented as of this encounter
--- OUTSIDE RECORDS SUMMARY | 2025-06-29 11:54 | XMS_ITS | Encounter Summary ---
Author Organization [employer] Address [address] [place] [address] 7 h Floor [place] [phone] Care Team Providers Care Photographer Helper Name Role Phone Dianne Smith Primary Care Provider [phone] Reason for Visit * Reason Onset Date Comments Appointment Request 06/07/2025 Encounter Details Date Type Department Care Team ([facility] st Contact Info) Description 06/07/2025 Telephone [facility] MEDICINE [address] [place], [place] [phone] Dianne Smith ANP [address] [place], [place] [phone] Appointment Request Social History Tobacco Use Types Packs/Day Years Used Date Smoking Tobacco: Every Day Cigarettes Passive Smoke Exposure: Current Smokeless Tobacco: Never Depression Answer Date Recorded Patient Health Questionnaire-9 Score 17 04/14/2025 Patient Health Questionnaire-9 Score 17 04/14/2025 Last PHQ-9: Questionnaire Data Not on file 0 04/14/2025 Housing Stability Answer Date Recorded What is [...] Date Recorded Patient Health Questionnaire-2 Score 6 04/14/2025 Internet Access Answer Date Recorded Internet Access [...] encounter Miscellaneous Notes * Telephone Encounter - Justin Abraham - 06/07/2025 9:14 AM EDT Tc from pt requesting to reschedule apt on 06/14 Contact pt at [phone] (polish) documented in this encounter Plan of Treatment Upcoming Encounters Date Type Department Care Team (Late st Contact Info) Description 08/25/2025 2:30 PM EST Office Visit [facility] MEDICINE [address] [place] [address] Dianne Smith ANP [address] [place] [address] 09/19/2025 2:00 PM EST Telemedicine [facility] MED [facility] PEDS [address] [place] [address] Eugenia Solis, SHIRAZ [address] [place] [address] documented as of this encounter Visit Diagnoses Not on filedocumented in this encounter Additional Health Concerns Assessment Noted Time PHQ-9 Depression Total Score: 17 025 10:40 AM EDT documented as of this encounter Care Teams Photographer Helper Relationship Specialty Start Date End Date Dianne Smith ANP [address] [place] [address] PCP - General Family Medicine 02/01/20 documented as of this encounter
--- OUTSIDE RECORDS SUMMARY | 2025-06-29 11:54 | XMS_ITS | Clinical Summary ---
Author Organization [facility] ity Address [id number] [place] [id number] Care Team Providers Care Dock Associate Name Role Phone Dianne Smith NP Primary Care Provider [phone] Social History Tobacco Use Types Packs/Day Years Used Date Smoking Tobacco: Never Assessed Comments Unknown Sex and Gender Information Value Date Recorded Sex Assigned at Not on file Legal Sex Female 1:51 PM EST Gender Identity Not on file Sexual Orientation Not on file Obstetrics History Plan of Treatment Health Maintenance Due Date Last Done Comments Breast Cancer Screening 1972 Colorectal Cancer Screening: Colonoscopy 1972 Hepatitis B Vaccines (1 of 3 - 19+ 3-dose series) 1991 Cervical Cancer Screening: P ap Smear 1993 Pneumococcal Vaccine: 50+ Ye ars (1 of 1 - PCV) 2022 Zoster Vaccines (1 of 2) 2022 HIV Screening 06/30/2024 Hepatitis C Screening 06/30/2024 Social Influencers of Health Screening 06/30/2024 Depression Screening 09/15/2024 COVID-19 Vaccine (1 - 2023-2 5 season) 2025 Influenza Vaccine (#1) 2025 DTaP,Tdap,and Td Vaccines (2 - Td or Tdap) 03/15/2034 03/15/2024 RSV Immunization Adult Patie nts (1 - 1-dose 75+ series) 2047 HIB Vaccines Aged Out No longer eligi [...] age to complete this topic Care Teams Dock Associate Relationship Specialty Start Date End Date Dianne Smith NP [address] [place] [phone] PCP - General 03/15/24
[2025-06-29 12:14] LABS: Alanine Aminotransferase 52 U/L (0-31); Albumin Level 4.7 g/dL (3.5-5.0); Alkaline Phosphatase 88 U/L (39-117); Anion Gap 11 (12-20); Aspartate Amino Transferase 30 U/L (5-31); Blood Urea Nitrogen 19 mg/dL (9-16); Calcium 9.7 mg/dL (8.4-10.2); Carbon Dioxide 30 mmol/L (22-29); Chloride 103 mmol/L (96-108); Cholesterol 208 mg/dL (<200); Estimated Glomerular Filt Rate > 60; HDL Cholesterol 35 mg/dL (>40); Potassium 3.8 mmol/L (3.3-5.1); Sodium 140 mmol/L (135-145); Total Protein 7.7 g/dL (6.5-8.0); Triglycerides 128 mg/dL (<150)
[2025-06-29 12:17] LABS: Vitamin B12 752 pg/mL (200-900)
== END 2025-06-29 10:06 | disposition home or self-care (01) ==
LOC: HO.HHCX 10:05
PROVIDERS: PCP Nurse Practitioner Primary Care; Visit Provider Nurse Practitioner Primary Care
DX: M79.641 Pain in right hand (principal); M79.642 Pain in left hand; R53.83 Other fatigue; I15.2 Hypertension secondary to endocrine disorders; E11.59 Type 2 diabetes mellitus with other circulatory complications
CPT/HCPCS: 36415; 73130; 80053; 80061; 82043; 82306; 82570; 82607; 84443; 85025

== ENCOUNTER → 2025-06-29 10:22 | Outpatient (BNV) | payer BC, SELFPAY | PROVIDERS: PCP Nurse Practitioner Primary Care; Visit Provider Radiology Diagnostic Ultrasound | DX: M79.641 Pain in right hand (principal); M79.642 Pain in left hand | CPT/HCPCS: 73130 ==